=== PATIENT | male | born 1955 | race Caucasian/White ===

== ENCOUNTER 2017-11-13 21:47 | Observation (INO) | payer MEDICAID, SELFPAY ==
[2017-11-13 21:51] VITALS: BP 150/63; PULSE 93; RESP 18; TEMP 36.4; O2SAT 93; BMI 39.7
--- NOTE | 2017-11-13 21:57 | HMH.EDGENADL ---
ED Disposition Clinical Impression: New onset atrial fibrillation Congestive heart failure Qualifiers: Heart failure type: unspecified Heart failure chronicity: acute Qualified Code(s): I50.9 - Heart failure, unspecified Disposition: Still a Patient Condition on Discharge: Good - Critical Care Critical Care Time: Yes Attestation: On , the high probability of a clinically significant, sudden or life threatening deterioration of the following system(s) required my full and direct attention, intervention and personal management. The time I documented below is in addition to time spent performing reported procedures but includes the following listed in this critical care notation. Total Critical Care Time: 50 Vital system(s) involved:: Circulatory Failure My critical care processes included: Assessment & monitoring of V/S, Initial and Re-exams, Data Review/Interpretation, Coordinating Care, Medication Orders and management, Documentation Medical Decision Making - [place] Inquiry Pt receiving controlled substance: No Vital Signs: 11/13/17 21:51 11/14/17 00:46 Temperature 97.6 F Temperature Source Temporal Artery Scan Pulse Rate [Right Radial] 93 H 91 H Respiratory Rate 18 14 Blood Pressure [Right Arm] 150/63 129/56 Blood Pressure Mean [Right Arm] 92 80 Blood Pressure Source [Right Arm] Automatic Cuff Blood Pressure Position [Right Arm] Sitting 02 Sat by Pulse Oximetry 93 L 97 Oxygen Delivery Method Room Air Room Air - Lab Data Lab Results 11/13/17 22:20: WBC 9.2, RBC 4.08 L, Hgb 12.4 L, Hct 40.1 L, MCV 98.3 H, MCH 30.4, MCHC 31.0 L, RDW 15.1, Plt Count 213, MPV 7.8, Neut % (Auto) 79.6, Lymph % (Auto) 11.6, [place] % (Auto) 6.5, Eos % (Auto) 2.0, Baso % (Auto) 0.3, Neut # (Auto) 7.3, Lymph # (Auto) 1.1, [place] # (Auto) 0.6, Eos # (Auto) 0.2, Baso # (Auto) 0.0 11/13/17 22:20: Sodium 142, Potassium 4.1, Chloride 104, Carbon Dioxide 28, Anion Gap 14.1, BUN 17, Creatinine 0.97, Estimated Creat Clear 138, Estimated GFR 78, Est GFR ( Amer) 95, Glucose 153 H, Calcium 8.6, Total Bilirubin 0.4, AST 13 L, ALT 21, Alkaline Phosphatase 70, Total Creatine Kinase 140, CK-MB (CK-2) 2.2, CK-MB (CK-2) Rel Index 1.6, Troponin I < 0.02, Total Protein 7.2, Albumin 3.7, Globulin 3.5 H, Albumin/Globulin Ratio 1.1 11/13/17 22:20: Lactic Acid 3.0 H 11/13/17 22:20: B-Natriuretic Peptide 77 Result diagrams: 11/13/17 22:20 11/13/17 22:20 Orders (Tests/Meds): ED MEDICATIONS Generic Name Dose Route Start Last Admin Trade Name Freq PRN Reason Stop Dose Admin Iopamidol 70 ml 11/14/17 00:36 11/14/17 01:12 [id number]; 75ml Vial IV 11/14/17 00:37 70 ml ONCE ONE Administration Sodium Chloride 10 ml 11/14/17 00:36 11/14/17 01:13 Rad-Saline Flush 10ml Syringe IV 11/14/17 00:37 10 ml ONCE ONE Administration Sodium Chloride 40 ml 11/14/17 00:36 11/14/17 01:13 Rad-Ns 50ml Vial IV 11/14/17 00:37 40 ml ONCE ONE Administration Discontinued Medications Generic Name Dose Route Start Last Admin Trade Name Meme PRN Reason Stop Dose Admin Furosemide 40 mg 11/14/17 01:02 Lasix 40mg/4ml Vial IV 11/14/17 01:03 ONCE ONE Metoprolol Tartrate 50 mg 11/13/17 23:37 11/13/17 23:54 Lopressor 50mg Tablet PO 11/13/17 23:38 50 mg ONCE ONE Administration Rivaroxaban 20 mg 11/14/17 23:39 Xarelto 10mg Tablet PO 11/14/17 23:40 ONCE ONE Rivaroxaban 20 mg 11/13/17 23:39 11/13/17 23:54 Xarelto 10mg Tablet PO 11/13/17 23:40 20 mg ONCE ONE Administration ORDERS Category Date Time Status CT Req chest with PE protocol Stat Cat Scan 11/13/17 23:[address] angio chest Stat Cat Scan 11/13/17 23:[address] angio chest Stat Cat Scan 11/14/17 00:17 Ordered Chest XR 2 view (NOT portable) [XR chest 2V] Stat Exams 11/13/17 22:04 Taken - Radiology Data #1 Image(s): Chest Image Reviewed: Yes I reviewed the patient's radiology image Rina
--- NOTE | 2017-11-13 22:04 | XR_ITS ---
XR chest 2V COMPARISON: Portable upright chest 02/20/2015 HISTORY: Shortness of breath and cough TECHNIQUE: PA and lateral chest FINDINGS: The lung berger are fairly well-expanded. There is diffuse vascular congestion with prominence of the upper lobe vessels and there is thickening the minor fissure. There is borderline cardio megaly. The cardiac pacemaker overlying the right upper chest with dual chamber electrodes both in good position. IMPRESSION: Findings consistent with acute congestive heart failure
[2017-11-13 22:34] LABS: Basophils % 0.3 % (0.1-2.0); Eosinophils # 0.2 K/mm3 (0.0-0.4); Hematocrit 40.1 % (42.0-52.0); Hemoglobin 12.4 g/dL (14.1-18.0); Lymphocytes # 1.1 K/mm3 (0.7-4.5); Lymphocytes % 11.6 K/mm3 (10-50); Mean Corpuscular Hemoglobin 30.4 pg (27.0-31.2); Mean Corpuscular Volume 98.3 fl (80-94); Mean Platelet Volume 7.8 fl (7.4-10.4); Monocytes # 0.6 K/mm3 (0.1-1.0); Monocytes % 6.5 % (1.7-9.3); Neutrophils # 7.3 K/mm3 (1.8-7.8); Neutrophils % 79.6 % (37.0-80.0); Platelet Count 213 K/mm3 (142-424); Red Blood Count 4.08 M/mm3 (4.60-6.20); Red Cell Distribution Width 15.1 % (11.5-17.5); White Blood Count 9.2 K/mm3 (4.8-10.8)
[2017-11-13 22:57] LABS: Alanine Aminotransferase 21 U/L (12-78); Albumin Level 3.7 gm/dL (3.4-5.0); Albumin/Globulin Ratio 1.1 (1.1-1.8); Alkaline Phosphatase 70 U/L (46-116); Anion Gap 14.1 mEq/L (5-15); Aspartate Amino Transferase 13 U/L (15-37); Bilirubin,Total 0.4 mg/dL (0.2-1.0); Blood Urea Nitrogen 17 mg/dL (7-18); CKMB Relative Index 1.6 U/L (0-4.0); Calcium 8.6 mg/dL (8.5-10.1); Carbon Dioxide 28 mmol/L (21.0-32.0); Chloride 104 mmol/L (98-107); Creatine Kinase 140 U/L (39-308); Creatine Kinase MB 2.2 mg/ml (0.0-3.6); Creatinine Clearance Estimated 138 mL/min (0-300); Creatinine,Serum 0.97 mg/dL (0.70-1.30); Estimated Glomerular Filt Rate 78 ml/min (>60); GFR (African American) 95 ML/MIN (>60); Globulin 3.5 gm/dl (1.3-3.2); Glucose 153 mg/dL (74-106); Potassium 4.1 mmoL/L (3.5-5.1); Sodium 142 mmol/L (136-145); Total Protein,Serum 7.2 gm/dL (6.4-8.2); Troponin I < 0.02 ng/ml (0.00-0.06)
--- NOTE | 2017-11-13 23:32 | PC.NURSE ---
DR Jones on phone with DR. Parish.
--- NOTE | 2017-11-13 23:59 | CT_ITS ---
CT angio chest COMPARISON: PA and lateral chest 11/13/2017 HISTORY: Shortness of breath, new onset of atrial fibrillation, previous smoking history TECHNIQUE: Multiaxial scans obtained from the thoracic inlet to the hemidiaphragms after rapid injection of IV contrast. Sagittal and coronal reformats were evaluated as well. FINDINGS: The lung berger are fairly well-expanded. There is excellent vascular opacification and there is no CT evidence of pulmonary emboli. There is moderate generalized cardio megaly and there is a cardiac pacemaker with dual chamber electrodes both in good position. Is coronary artery calcification. There is mild vascular congestion with mild atelectasis in the lower lobes bilaterally. Minimal scattered areas of groundglass opacity are noted. There is mild thickening of the minor fissure. There are mild centrilobular emphysematous changes in the upper lobes bilaterally. There is abundant fat within the superior mediastinum there is no abnormal adenopathy. IMPRESSION: Moderate generalized cardio megaly with findings suggesting mild congestive failure, there is no CT evidence of pulmonary emboli, basically agree with the [facility] report
[2017-11-14] VITALS (11 sets, daily range): BP systolic 114–137; BP diastolic 56–82; PULSE 76–100; RESP 14–18; TEMP 36.4–37; O2SAT 88–97; BMI 39.9
--- NOTE | 2017-11-14 00:06 | PC.NURSE ---
PT TO CT AT THIS TIME
--- NOTE | 2017-11-14 01:25 | PC.NURSE ---
CALLED ER TO VERIFY WITH MONIKA FIGUEROA AND HE ASKED THE MD IN THE ER AND STATED THAT THEY DID NOT WANT THE BLOOD CULTURES.
[2017-11-14 02:38] LABS: Reflex Lactic Add Lactic Reflex
--- NOTE | 2017-11-14 03:01 | PC.NURSE ---
PT IS A&OX3. HE DENIES CHEST PAIN AND SOA. STATES THAT HE IS UNABLE TO SLEEP ON HIS BACK AND PREFERS TO SLEEP ON HIS SIDE. YELLOWISH DRAINAGE NOTED FROM BOTH EYES. DENIES OTHER FORMS OF PAIN.
[2017-11-14 03:23] LABS: Lactic Acid Follow Up (RFLX 1) 2.6 (0.4-2.0)
[2017-11-14 04:54] LABS: Reflex Lactic (2 hrs) Add Lactic Reflex
[2017-11-14 06:21] LABS: POC Glucose,Bedside 82 mg/dL (70-110)
--- NOTE | 2017-11-14 09:55 | HMH.ACPN2 ---
Internal Medicine - PN: Subj *Date: 11/14/17 *Time: 09:55 Interval history: This 62-year-old white male has a history of hemic cardiomyopathy with an ejection fraction of 25-30%. Then in the emergency room last night with with symptoms of shortness of breath discomfort up into the neck. Seen by Dr. Lopez in the emergency room who described new onset of atrial fibrillation. After communication with Dr. Parish the patient was admitted. Cardiac enzymes are negative. The patient had a stent placed in 2008. He is pacer defibrillator was placed in 02/12. There was a lead displacement 02/20/2015 with readjustment of that. He is s seen by cardiology on a every 6 month basis. He has a history of diabetes in the family. His brother is diabetic. He had a brother that of cancer. His mother of cancer. Exam Vital signs and Labs for Last 24 Hours: Temp Pulse Resp BP Pulse Ox 98.4 F 90 18 137/73 90 L 11/14/17 08:00 11/14/17 08:00 11/14/17 08:00 11/14/17 08:00 11/14/17 08:00 Laboratory Results - last 24 hr 11/14/17 02:45: Lactic Acid Fup @ 4Hr 2.6 H 11/14/17 05:00: Lactic Acid Fup @ 2Hr 2.0 11/14/17 05:58: POC Glucose 82 I & O for Last 24 hours: Intake & Output 11/11/17 11/12/17 11/13/17 11/14/17 11:59 11:59 11:59 11:59 Intake Total 20 / 20 Output Total 1250 / 1250 Balance -1230 / -1230 - Constitutional no acute distress - *Routine HEENT Exam Eye: Present: PERRL ENT: Present: mucous membranes dry - *Routine Respiratory Exam Present: decreased breath sounds - *Routine Cardiovascular Exam Comments: His heart sounds are distant but he seems regular at this time. - *Routine Abdominal Exam Present: soft. Absent: tenderness Comments: Very obese - *Routine Extremities Exam Present: edema (Trace edema) - *Routine Neurological Exam Present: alert, oriented X3 - Routine Psychiatric Exam Comments: He directs his gaze away when speaking. Assessment and Plan (1) Ischemic cardiomyopathy Current visit: Yes Status: Acute Category: Medical Code(s): I25.5 - Ischemic cardiomyopathy (2) Presence of combination internal cardiac defibrillator (ICD) and pacemaker Current visit: Yes Status: Acute Category: Medical Code(s): Z95.810 - Presence of automatic (implantable) cardiac defibrillator (3) Cardiac dysrhythmia Current visit: Yes Status: Acute Category: Medical Code(s): I49.9 - Cardiac arrhythmia, unspecified (4) Diabetes mellitus type 2 in obese Current visit: Yes Status: Acute Category: Medical Code(s): E11.69 - Type 2 diabetes mellitus with other specified complication; E66.9 - Obesity, unspecified - Assessment and plan all Dx Assessment and Plan for all problems:: See orders. There is a consult for cardiology.
--- NOTE | 2017-11-14 10:08 | HMH.PHAVTE ---
[facility] Pharmacy VTE Monitoring - Patient Demographics Admission date: 11/14/17 (T) Report Date: 11/14/17 Time: 10:08 Allergies/Adverse Reactions: Patient Allergies From PEPCID Allergy (Unknown, Uncoded 08/17/17 15:24) MARCELINA Height: 1.8 m Weight: 129.727 kg Patient Problems: Current Active Problems New onset atrial fibrillation (Acute) Congestive heart failure (Acute) Ischemic cardiomyopathy (Acute) Presence of combination internal cardiac defibrillator (ICD) and pacemaker (Acute) Cardiac dysrhythmia (Acute) Diabetes mellitus type 2 in obese (Acute) - VTE Risk Labs: VTE Related Lab Results Hgb 12.4 g/dL (14.1-18.0) L 11/13/17 22:20 Hct 40.1 % (42.0-52.0) L 11/13/17 22:20 Plt Count 213 K/mm3 (142-424) 11/13/17 22:20 BUN 17 mg/dL (7-18) 11/13/17 22:20 Creatinine 0.97 mg/dL (0.70-1.30) 11/13/17 22:20 Estimated Creat Clear 138 mL/min (0-300) 11/13/17 22:20 VTE Score: 3 VTE Risk Level: Low Risk - Prophylaxis Types of VTE Prophylaxis: TEDS Knee High - VTE Diagnosis Confirmed Comment: MARCELLO LEDBETTER ORDERED
--- NOTE | 2017-11-14 11:07 | PC.NURSE ---
MADE DR. ATKINSON AWARE AT THIS TIME ABOUT CONSULT. STATED IT WAS OKAY TO ALLOW PATIENT TO EAT AT THIS TIME.
[2017-11-14 11:43] LABS: POC Glucose,Bedside 206 mg/dL (70-110)
--- NOTE | 2017-11-14 17:03 | HMH.HP ---
*Admission Date: 11/14/17 (T) *Chief complaint: SOA *History of present illness: This 62-year-old white male was admitted during the night of . He was seen in the emergency room at [facility]. He was complaining of shortness of air through the day with some discomfort up into the neck. He has a history of coronary artery disease. In 2008 he received a stent. He has been followed by Dr. Parish who sees him every 6 months. He received a pacemaker/AICD in February 12, 2015 with correction of a lead displacement February 20, 2015. He has diabetes and has had congestive heart failure in the past. He is not a very good historian. [facility] History Medical History: Reports:: Atrial Fibrillation, Cardiomyopathy (25-30% EF), Diabetes Mellitus Type 2, Hyperlipidemia, Myocardial Infarction Denies:: Cancer, Diabetes Mellitus Type 1, MRSA Other Surgeries: Yes: Angiogram, Angioplasty, Pacemaker Amputation: No Fractures: No - *Social History Smoking Status: Heavy tobacco smoker Tobacco Type: smokeless tobacco Alcohol Intake: never Occupational Status: retired Household Members: spouse - Psychiatric History Expresses thoughts of harming self/others: None Suicide Plan Description: No Plan *Family Hx:: Cancer, Diabetes Comment: His mother of cancer of some sort. A brother of cancer. Another brother has diabetes. Review of Systems - Constitutional Denies chills, Denies weakness - *Cardiovascular Reports shortness of breath, Reports radiating jaw, neck or arm pain, Denies chest pain, Denies fainting - *Respiratory Reports shortness of breath - *Gastrointestinal Denies abdominal pain, Denies constipation, Denies loose stools - *Genitourinary Denies difficulty urinating - *Musculoskeletal Denies joint swelling - *Neurologic Denies localized weakness - Endocrine Denies cold intolerance - Hematologic/Lymphatic Denies easy bleeding, Denies easy bruising Meds Home Medications Medication Instructions Recorded Confirmed Type Atorvastatin Calcium [Atorvastatin 80 mg PO HS 11/13/17 11/14/17 History 80mg Tab] Carvedilol [Carvedilol 25mg Tab] 25 mg PO BID 11/13/17 11/14/17 History Finasteride [Proscar 5mg Tablet] 5 mg PO DAILY 11/13/17 11/14/17 History Gabapentin [Neurontin 600mg 600 mg PO TID 11/13/17 11/14/17 History tablet] Isosorbide Mononitrate [Imdur 30mg 15 mg PO DAILY 11/13/17 11/14/17 History ER tablet] Levothyroxine Sodium 75 mcg PO DAILY 11/13/17 11/14/17 History [Levothyroxine 75mcg (0.075mg) Tab] Lisinopril [Lisinopril 2.5mg Tab] 2.5 mg PO DAILY 11/13/17 11/14/17 History Metformin HCl [Metformin 850mg 850 mg PO TID 11/13/17 11/14/17 History Tablet] Omeprazole [Omeprazole 40mg 40 mg PO DAILY 11/13/17 11/14/17 History Capsule] glipiZIDE [Glipizide ER] 5 mg PO DAILY 11/13/17 11/14/17 History Humulin 70/30 45 units SQ BID 11/14/17 11/14/17 History Vitamin D 400 units PO BID 11/14/17 11/14/17 History Allergies Allergy/AdvReac Type Severity Reaction Status Date / Time From [facility] Allergy Unknown I-HIVES Uncoded 08/17/17 15:24 Exam Vital signs and Labs for Last 24 Hours: Temp Pulse Resp BP Pulse Ox 97.9 F 76 18 114/71 93 L 11/14/17 16:00 11/14/17 16:00 11/14/17 16:00 11/14/17 16:00 11/14/17 16:00 Laboratory Results - last 24 hr 11/14/17 02:45: Lactic Acid Fup @ 4Hr 2.6 H 11/14/17 05:00: Lactic Acid Fup @ 2Hr 2.0 11/14/17 05:58: POC Glucose 82 11/14/17 11:28: POC Glucose 206 I & O for Last 24 hours: Intake & Output 11/12/17 11/13/17 11/14/17 11/15/17 11:59 11:59 11:59 11:59 Intake Total 360 / 360 Output Total 1250 / 1250 Balance -1230 / -1230 360 / 360 Weight 286 lb - Constitutional no acute distress Comments: He diverts his eyes during the interview. - *Routine HEENT Exam Head: Present: normocephalic Eye: Present: PERRL (I had to ask him to look into my eyes during the exam) ENT: Pr
--- NOTE | 2017-11-14 17:06 | P.HP_ITS ---
*Admission Date: 11/14/17 (T) *Chief complaint: SOA *History of present illness: This 62-year-old white male was admitted during the night of . He was seen in the emergency room at [facility]. He was complaining of shortness of air through the day with some discomfort up into the neck. He has a history of coronary artery disease. In 2008 he received a stent. He has been followed by Dr. Parish who sees him every 6 months. He received a pacemaker/AICD in February 12, 2015 with correction of a lead displacement January. He has diabetes and has had congestive heart failure in the past. He is not a very good historian. [facility] History Medical History: Reports:: Atrial Fibrillation, Cardiomyopathy (25-30% EF), Diabetes Mellitus Type 2, Hyperlipidemia, Myocardial Infarction Denies:: Cancer, Diabetes Mellitus Type 1, MRSA Other Surgeries: Yes: Angiogram, Angioplasty, Pacemaker Amputation: No Fractures: No - *Social History Smoking Status: Heavy tobacco smoker Tobacco Type: smokeless tobacco Alcohol Intake: never Occupational Status: retired Household Members: spouse - Psychiatric History Expresses thoughts of harming self/others: None Suicide Plan Description: No Plan *Family Hx:: Cancer, Diabetes Comment: His mother of cancer of some sort. A brother of cancer. Another brother has diabetes. Review of Systems - Constitutional Denies chills, Denies weakness - *Cardiovascular Reports shortness of breath, Reports radiating jaw, neck or arm pain, Denies chest pain, Denies fainting - *Respiratory Reports shortness of breath - *Gastrointestinal Denies abdominal pain, Denies constipation, Denies loose stools - *Genitourinary Denies difficulty urinating - *Musculoskeletal Denies joint swelling - *Neurologic Denies localized weakness - Endocrine Denies cold intolerance - Hematologic/Lymphatic Denies easy bleeding, Denies easy bruising Meds Home Medications Medication Instructions Recorded Confirmed Type Atorvastatin Calcium [Atorvastatin 80 mg PO HS 11/13/17 11/14/17 History 80mg Tab] Carvedilol [Carvedilol 25mg Tab] 25 mg PO BID 11/13/17 11/14/17 History Finasteride [Proscar 5mg Tablet] 5 mg PO DAILY 11/13/17 11/14/17 History Gabapentin [Neurontin 600mg 600 mg PO TID 11/13/17 11/14/17 History tablet] Isosorbide Mononitrate [Imdur 30mg 15 mg PO DAILY 11/13/17 11/14/17 History ER tablet] Levothyroxine Sodium 75 mcg PO DAILY 11/13/17 11/14/17 History [Levothyroxine 75mcg (0.075mg) Tab] Lisinopril [Lisinopril 2.5mg Tab] 2.5 mg PO DAILY 11/13/17 11/14/17 History Metformin HCl [Metformin 850mg 850 mg PO TID 11/13/17 11/14/17 History Tablet] Omeprazole [Omeprazole 40mg 40 mg PO DAILY 11/13/17 11/14/17 History Capsule] glipiZIDE [Glipizide ER] 5 mg PO DAILY 11/13/17 11/14/17 History Humulin 70/30 45 units SQ BID 11/14/17 11/14/17 History Vitamin D 400 units PO BID 11/14/17 11/14/17 History Allergies Allergy/AdvReac Type Severity Reaction Status Date / Time From [facility] Allergy Unknown I-HIVES Uncoded 08/17/17 15:24 Exam Vital signs and Labs for Last 24 Hours: Temp Pulse Resp BP Pulse Ox 97.9 F 76 18 114/71 93 L 11/14/17 16:00 11/14/17 16:00 11/14/17 16:00 11/14/17 16:00 11/14/17 16:00 Laboratory Results - last 24 hr 03
--- NOTE | 2017-11-14 18:06 | PC.NURSE ---
DR ATKINSON ROUNDED ON [place] AT ABOUT 1435 FOR ORDERED CONSULT. AFTER ASSESSING PATIENT HE ENUSRED AN ORDER WAS PLACED FOR AN ECHO. HE ALSO WANTED ALDACTONE 50MG PO DAILY AND LASIX 40MG PO DAILY ORDERED ON THE PATIENT AND TO START THOSE MEDS AT THAT TIME.
[2017-11-14 19:36] LABS: POC Glucose,Bedside 165 mg/dL (70-110)
[2017-11-14 20:41] LABS: POC Glucose,Bedside 149 mg/dL (70-110)
[2017-11-15] VITALS (8 sets, daily range): BP systolic 128–144; BP diastolic 64–92; PULSE 70–100; RESP 16–20; TEMP 36.5–37.2; O2SAT 87–95; BMI 40.0
--- NOTE | 2017-11-15 01:21 | CA_ITS ---
PROCEDURE: 2-D M-mode and color Doppler study INDICATIONS FOR THE TEST: Chest pain COPD Heart Murmur Tobacco Smoking+ Palpitations Fatigue Syncope Edema Hypertension+Diabetes Mellitus+ Rheumatic Fever SOB BA Obesity Hyperlipidemia Family History HD Additional History CAD, STENT, AICD, CM, ME PATIENT INFORMATION HEIGHT: 71 WEIGHT:285 GENDER: Male B/P:114/71 2-D/M-MODE INTERPRETATION: 2-D MEASUREMENTS OBSERVED VALUES IN CMS Right Ventricular Dimension (RVDd) 3.0 Interventricular Septum (Thickness)(IVsd) 1.0 Left Ventricular Internal Dimensions(LVIDd) 5.9 Left Ventricular Posterior Wall (Thickness)(LVPWd) 1.0 Aortic Root 3.1 Aortic Cusp Separation 1.5 Left Atrial Dimensions (LAD) 4.4 2D 1. Left atrium is moderately enlarged, left ventricle is mildly dilated, there is left ventricular systolic function, visually estimated ejection fraction approximately 40-45%, there is marked hypo to akinesis involving the inferior inferobasal and posterobasal wall. Endocardial surface of poorly visualized. 2. The right atrium and right ventricular mildly enlarged with normal contractility., There is a catheter noted in the right ventricle which is likely an ICD lead. 3. The aortic valve is minimally thickened and fibrosed. 4. The mitral and tricuspid valve leaflets are minimally thickened. 5. The pulmonic valve is poorly visualized. 6. No significant pericardial effusion noted. DOPPLER INTERROGATION: Doppler interrogation of the aortic, mitral and tricuspid valvular presence of moderate mitral and mild tricuspid regurgitation, tricuspid and jet velocity insufficient for calculation of the right ventricular systolic pressure. Grade 1 diastolic dysfunction seen with tissue Doppler evidence of raised left atrial pressure. CONCLUSION: 1. Biatrial enlargement, dilated left ventricle, reduced left ventricular systolic function, visually estimated ejection fraction 40-45% with multiple segmental wall motion abnormality described above, grade 1 diastolic dysfunction seen with tissue Doppler evidence of raised left atrial pressure. 2. Moderate mitral and mild tricuspid regurgitation 3. No significant pericardial effusion noted.
--- NOTE | 2017-11-15 03:17 | PC.NURSE ---
PT IS A&OX3. HE HAS BEEN AMBULATING INDEPENDENTLY WITH A STEADY GAIT TO BATHROOM AND BACK TO HIS ROOM. HIS LUNG SOUNDS ARE DIMINISHED. DENIES SOA AND PAIN.
[2017-11-15 06:10] LABS: POC Glucose,Bedside 153 mg/dL (70-110)
[2017-11-15 09:07] LABS: Anion Gap 10.8 mEq/L (5-15); Blood Urea Nitrogen 13 mg/dL (7-18); Carbon Dioxide 31 mmol/L (21.0-32.0); Chloride 101 mmol/L (98-107); Creatinine Clearance Estimated 139 mL/min (0-300); Creatinine,Serum 0.95 mg/dL (0.70-1.30); Estimated Glomerular Filt Rate 80 ml/min (>60); GFR (African American) 97 ML/MIN (>60); Glucose 189 mg/dL (74-106); Potassium 3.8 mmoL/L (3.5-5.1); Sodium 139 mmol/L (136-145)
--- NOTE | 2017-11-15 09:31 | HMH.ACPN2 ---
Internal Medicine - PN: Subj *Date: 11/15/17 *Time: 09:31 Interval history: He has remained stable. He is in and out of atrial fibrillation. See cardiology report. He may be discharged later today. Exam Vital signs and Labs for Last 24 Hours: Temp Pulse Resp BP Pulse Ox 98.1 F 92 H 20 139/65 94 L 11/15/17 07:54 11/15/17 07:54 11/15/17 07:54 11/15/17 07:54 11/15/17 07:54 Laboratory Results - last 24 hr 11/14/17 11:28: POC Glucose 206 11/14/17 16:30: POC Glucose 165 11/14/17 20:27: POC Glucose 149 11/15/17 05:50: POC Glucose 153 11/15/17 08:50: Sodium 139, Potassium 3.8, Chloride 101, Carbon Dioxide 31, Anion Gap 10.8, BUN 13, Creatinine 0.95, Estimated Creat Clear 139, Estimated GFR 80, Est GFR ( Amer) 97, Glucose 189 H I & O for Last 24 hours: Intake & Output 11/12/17 11/13/17 11/14/17 11/15/17 11:59 11:59 11:59 11:59 Intake Total 1100 / 1100 Output Total 1250 / 1250 1500 / 1500 Balance -1230 / -1230 -400 / -400 Weight 286 lb 286 lb 8.353 oz - *Routine Cardiovascular Exam Present: RRR Comments: Seems sinus at this time. - *Routine Abdominal Exam Comments: Obese soft - *Routine Extremities Exam Absent: edema Assessment and Plan (1) Ischemic cardiomyopathy Current visit: Yes Status: Acute Category: Medical Code(s): I25.5 - Ischemic cardiomyopathy (2) Presence of combination internal cardiac defibrillator (ICD) and pacemaker Current visit: Yes Status: Acute Category: Medical Code(s): Z95.810 - Presence of automatic (implantable) cardiac defibrillator (3) Cardiac dysrhythmia Current visit: Yes Status: Acute Category: Medical Code(s): I49.9 - Cardiac arrhythmia, unspecified (4) Diabetes mellitus type 2 in obese Current visit: Yes Status: Acute Category: Medical Code(s): E11.69 - Type 2 diabetes mellitus with other specified complication; E66.9 - Obesity, unspecified - Assessment and plan all Dx Assessment and Plan for all problems:: Perhaps discharge later.
--- NOTE | 2017-11-15 09:44 | HMH.CNCARD ---
History of Present Illness Consult date: 11/14/17 Requesting physician: Ajit Diego Consult reason: atrial fibrillation, congestive heart failure Chief complaint: SOA Additional Medical History:: 1. Coronary artery disease A. History of myocardial infarction in 2008 and subsequent coronary stenting B. Ischemic cardiomyopathy by exercise Myoview, 01/2015, showing old inferior AL with rashid-infarction ischemia and ejection fraction of 36%. Patient asymptomatic. C. Echocardiogram, 01/2015, EF 25-35%. D. History of congestive heart failure E. [place] aldo [place] [id number] ICD placement, 01/2015, with lead repositioning also in 01/2015. 2. Diabetes mellitus 3. Hypertension 4. Hyperlipidemia 5. History of tobacco use, discontinued 2008, smoked 3-4 packs per day for many years starting as a teenager. 6. Obesity History of present illness: 62-year-old white male with known ischemic cardiomyopathy, AICD in situ and previous coronary artery stenting after myocardial infarction in 2008 presented to hospital for increasing shortness of breath over the last several days. Patient was found to have atrial fibrillation with a mild rapid ventricular response (102 bpm) and was started on PO metoprolol for rate control. Chest x-ray revealed evidence of congestive heart failure and patient was started on diuretic therapy as well. Cardiology consulted for further evaluation recommendations. Patient has been followed in our clinic for his ICD but has not been seen for ongoing clinical evaluations for unknown reason. He denies any chest pain, pressure or tightness. He has noticed some increased swelling in his abdomen and legs and does admit to drinking 10-12 soft drinks per day. He was seen by Dr. Parish yesterday with plans for an echocardiogram today. Review of his ICD interrogations in the office show A. Fib burden of <1% as recently as 05/2017. [facility] History Medical History: Reports:: Atrial Fibrillation, Cardiomyopathy (25-30% EF), Coronary Artery Disease, Diabetes Mellitus Type 2, Hyperlipidemia, Internal Pacemaker, Myocardial Infarction Denies:: Cancer, Diabetes Mellitus Type 1, MRSA Other Surgeries: Yes: Angiogram, Angioplasty, Pacemaker Amputation: No Fractures: No - *Social History Smoking Status: Heavy tobacco smoker Tobacco Type: smokeless tobacco Alcohol Intake: never Occupational Status: retired Household Members: spouse - Psychiatric History Expresses thoughts of harming self/others: None Suicide Plan Description: No Plan *Family Hx:: Cancer, Diabetes Meds Home Medications Medication Instructions Recorded Confirmed Type Atorvastatin Calcium [Atorvastatin 80 mg PO HS 11/13/17 11/14/17 History 80mg Tab] Carvedilol [Carvedilol 25mg Tab] 25 mg PO BID 11/13/17 11/14/17 History Finasteride [Proscar 5mg Tablet] 5 mg PO DAILY 11/13/17 11/14/17 History Gabapentin [Neurontin 600mg 600 mg PO TID 11/13/17 11/14/17 History tablet] Isosorbide Mononitrate [Imdur 30mg 15 mg PO DAILY 11/13/17 11/14/17 History ER tablet] Levothyroxine Sodium 75 mcg PO DAILY 11/13/17 11/14/17 History [Levothyroxine 75mcg (0.075mg) Tab] Lisinopril [Lisinopril 2.5mg Tab] 2.5 mg PO DAILY 11/13/17 11/14/17 History Metformin HCl [Metformin 850mg 850 mg PO TID 11/13/17 11/14/17 History Tablet] Omeprazole [Omeprazole 40mg 40 mg PO DAILY 11/13/17 11/14/17 History Capsule] glipiZIDE [Glipizide ER] 5 mg PO DAILY 11/13/17 11/14/17 History Humulin 70/30 45 units SQ BID 11/14/17 11/14/17 History Vitamin D 400 units PO BID 11/14/17 11/14/17 History Allergies Allergy/AdvReac Type Severity Reaction Status Date / Time From PEPCID Allergy Unknown I-HIVES Uncoded 08/17/17 15:24 Review of Systems - *Cardiovascular Reports shortness of breath, Reports shortness of breath with activity, Reports leg swelling - *Respiratory Reports shortness of breath with activity - *Gastrointestinal Denies abdominal pain
--- NOTE | 2017-11-15 14:23 | PC.NURSE ---
FAMILY AT BEDSIDE ASKING ABOUT POSSIBLE DISCHARGE. NOTE IN SYSTEM FROM CARDIOLOGY STATING PT OK TO DC HOME WITH MEDICATION CHANGES AND FOLLOW UP. FAMILY INFORMED DR SCOTT IS PRIMARY PHYSICIAN AND WOULD BE THE ONE TO DC THE PT. CALL PLACED TO DR SCOTT OFFICE TO INFORM THEM OF FAMILY ASKING ABOUT DISCHARGE AND CARDIOLOG'S RECOMMENDATIONS. AWAITING CALL BACK FROM OFFICE. FAMILY REMAINS AT BS. CALL LIGHT WITHIN REACH.
[2017-11-15 18:07] LABS: POC Glucose,Bedside 188 mg/dL (70-110)
--- NOTE | 2017-11-15 22:55 | HMH.DCSUM ---
General - General Admission date: 11/14/17 (T) Discharge date: 11/15/17 HPI HPI: This 62-year-old white male was admitted during the night of 11/13. He was seen in the emergency room at [facility]. He was complaining of shortness of air through the day with some discomfort up into the neck. He has a history of coronary artery disease. In 2008 he received a stent. He has been followed by Dr. Parish who sees him every 6 months. He received a pacemaker/AICD in February 12, 2015 with correction of a lead displacement on February 20, 2015. He has diabetes and has had congestive heart failure in the past. He is not a very good historian. Hospital Course Hospital Course: Cardiology saw the patient and his ICD was interrogated. It showed increased Atrial fib/flutter noted since the end of July 2017 (80 days of a. fib/flutter total since 08/25/2017). There was also a rare non-sustained episode of V. tach (total of 5 with the longest of 10 beats). Cardiology recommended to continue coreg, lisinopril and Xarelto. They felt the patient was okay for discharge from cardiology standpoint with follow up in their office in a week. Objective Vital signs: Temp Pulse Resp BP Pulse Ox 98.9 F 90 18 144/92 94 L 11/15/17 16:00 11/15/17 17:57 11/15/17 16:00 11/15/17 16:00 11/15/17 16:00 Narrative: - Constitutional no acute distress Comments: He diverts his eyes during the interview. - *Routine HEENT Exam Head: Present: normocephalic Eye: Present: PERRL (I had to ask him to look into my eyes during the exam) ENT: Present: mucous membranes dry - *Routine Neck Exam Present: supple - *Routine Respiratory Exam Present: decreased breath sounds - *Routine Cardiovascular Exam Comments: His rhythm seemed regular at the time of this exam. He monitors primarily atrial fibrillation but there can be some periods of normal sinus rhythm as well. - *Routine Abdominal Exam Present: soft. Absent: tenderness Comments: Obese Results Labs on day of discharge: Labs from last 24 hours 11/15/17 11/15/17 11/15/17 17:59 08:50 05:50 Sodium 139 Potassium 3.8 Chloride 101 Carbon Dioxide 31 Anion Gap 10.8 BUN 13 Creatinine 0.95 Estimated Creat Clear 139 Estimated GFR 80 Est GFR ( Amer) 97 Glucose 189 H POC Glucose 188 153 DS: Diagnosis - Discharge Diagnosis (1) Cardiac dysrhythmia Status: Acute (2) Congestive heart failure Status: Acute (3) Diabetes mellitus type 2 in obese Status: Acute (4) Ischemic cardiomyopathy Status: Acute (5) New onset atrial fibrillation Status: Acute (6) Paroxysmal atrial fibrillation with rapid ventricular response Status: Acute (7) Presence of combination internal cardiac defibrillator (ICD) and pacemaker Status: Acute Discharge Plan - Patient Discharge Instructions ACTIVITY: Continue current activity DIET: diabetic diet, low fat, low cholesterol Patient Instructions: Low Glycemic Index Diets (Alternative Therapy), Atrial Fibrillation, Carbohydrate-Counting Diet, DI for Heart Failure - Follow up Plan Follow up with: Sterling Parish MD [Staff Physician] - Disposition: Home, Self-Long-Term Medications: Home Medications Medication Instructions Recorded Confirmed Type Atorvastatin Calcium [Atorvastatin 80 mg PO HS 11/13/17 11/14/17 History 80mg Tab] Carvedilol [Carvedilol 25mg Tab] 25 mg PO BID 11/13/17 11/14/17 History Finasteride [Proscar 5mg Tablet] 5 mg PO DAILY 11/13/17 11/14/17 History Gabapentin [Neurontin 600mg 600 mg PO TID 11/13/17 11/14/17 History tablet] Isosorbide Mononitrate [Imdur 30mg 15 mg PO DAILY 11/13/17 11/14/17 History ER tablet] Levothyroxine Sodium 75 mcg PO DAILY 11/13/17 11/14/17 History [Levothyroxine 75mcg (0.075mg) Tab] Lisinopril [Lisinopril 2.5mg Tab] 2.5 mg PO DAILY 11/13/17 11/14/17 History Metformin
--- NOTE | 2017-11-15 23:00 | P.DS_ITS ---
General - General Admission date: 11/14/17 (T) Discharge date: 11/15/17 HPI HPI: This 62-year-old white male was admitted during the night of 11/13. He was seen in the emergency room at [facility]. He was complaining of shortness of air through the day with some discomfort up into the neck. He has a history of coronary artery disease. In 2008 he received a stent. He has been followed by Dr. Parish who sees him every 6 months. He received a pacemaker/AICD in February 12, 2015 with correction of a lead displacement on February 20, 2015. He has diabetes and has had congestive heart failure in the past. He is not a very good historian. Hospital Course Hospital Course: Cardiology saw the patient and his ICD was interrogated. It showed increased Atrial fib/flutter noted since the end of July 2017 (80 days of a. fib/ flutter total since 08/25/2017). There was also a rare non-sustained episode of V. tach (total of 5 with the longest of 10 beats). Cardiology recommended to continue coreg, lisinopril and Xarelto. They felt the patient was okay for discharge from cardiology standpoint with follow up in their office in a week. Objective Vital signs: Temp Pulse Resp BP Pulse Ox 98.9 F 90 18 144/92 94 L 11/15/17 16:00 11/15/17 17:57 11/15/17 16:00 11/15/17 16:00 11/15/17 16:00 Narrative: - Constitutional no acute distress Comments: He diverts his eyes during the interview. - *Routine HEENT Exam Head: Present: normocephalic Eye: Present: PERRL (I had to ask him to look into my eyes during the exam) ENT: Present: mucous membranes dry - *Routine Neck Exam Present: supple - *Routine Respiratory Exam Present: decreased breath sounds - *Routine Cardiovascular Exam Comments: His rhythm seemed regular at the time of this exam. He monitors primarily atrial fibrillation but there can be some periods of normal sinus rhythm as well. - *Routine Abdominal Exam Present: soft. Absent: tenderness Comments: Obese Results Labs on day of discharge: Labs from last 24 hours 11/15/17 11/15/17 11/15/17 17:59 08:50 05:50 Sodium 139 Potassium 3.8 Chloride 101 Carbon Dioxide 31 Anion Gap 10.8 BUN 13 Creatinine 0.95 Estimated Creat Clear 139 Estimated GFR 80 Est GFR ( Amer) 97 Glucose 189 H POC Glucose 188 153 DS: Diagnosis - Discharge Diagnosis (1) Cardiac dysrhythmia Status: Acute (2) Congestive heart failure Status: Acute (3) Diabetes mellitus type 2 in obese Status: Acute (4) Ischemic cardiomyopathy Status: Acute (5) New onset atrial fibrillation Status: Acute (6) Paroxysmal atrial fibrillation with rapid ventricular response Status: Acute (7) Presence of combination internal cardiac defibrillator (ICD) and pacemaker Status: Acute Discharge Plan - Patient Discharge Instructions ACTIVITY: Continue current activity DIET: diabetic diet, low fat, low cholesterol Patient Instructions: Low Glycemic Index Diets (Alternative Therapy), Atrial Fibrillation, Carbohydrate-Counting Diet, DI for Heart Failure - Follow up Plan Follow up with: Sterling Parish MD [Staff Physician] - Disposition: Home, Self-Long-Term Medications: Home Medications
[2017-11-16 07:49] LABS: POC Glucose,Bedside 169 mg/dL (70-110)
== END 2017-11-15 19:35 | disposition home or self-care (01) ==
LOC: ER 11-14 01:05 → ICU 11-14 01:28
PROVIDERS: Physician Assistant; Admitting Provider Family Medicine; Emergency Provider Emergency Medicine; Visit Provider Family Medicine
DX: I48.0 Paroxysmal atrial fibrillation (principal); I50.9 Heart failure, unspecified; Z95.810 Presence of automatic (implantable) cardiac defibrillator; I48.2 Chronic atrial fibrillation; E11.69 Type 2 diabetes mellitus with other specified complication; I25.5 Ischemic cardiomyopathy; I25.2 Old myocardial infarction; Z95.5 Presence of coronary angioplasty implant and graft
CPT/HCPCS: 36415; 71046; 71275; 80048; 80053; 82550; 82553; 82962; 83605; 83880; 84484; 85025; 93005; 93306; 96374; 99284; G0378; Q9967

== ENCOUNTER → 2018-01-06 11:47 | Outpatient (CLI) | payer MEDICAID, SELFPAY ==
--- NOTE | 2018-01-06 11:49 | NM_ITS ---
History and Indications: History of [place] hypertension, diabetes, hyperlipidemia, tobacco use and family history Procedure: Patient received a 0.4 mg of Lexiscan, resting heart rate was 69 bpm resting blood pressure 111/57, with Lexiscan maximum heart rate achieved was 96 bpm which is less than 85% of the maximum predicted heart rate and a blood pressure was 118/65. With Lexiscan patient complained of shortness of breath Electrocardiogram: Resting echocardiogram showed sinus rhythm, with Lexiscan there is less than 0.[address] segment depression from the baseline EKG. The EKG portion of the Lexiscan Myoview is nondiagnostic. Cardiac stress and resting SPECT images: Cardiac stress and rest SPECT images were obtained using technetium 99 Myoview 30.8 mCi at stress and 10.8 mCi at rest gated SPECT further analysis of segmental wall motion and calculation of the ejection fraction also done. Cardiac stress and resting SPECT images show a large area of fixed defect., Posterobasal, inferolateral wall in a fixed pattern consistent with area of prior myocardial scarring, in addition there is reversible ischemia involving the anteroseptal wall. Computer derived ejection fraction is 27% with marked hypokinesis involving the inferior and inferolateral and posterobasal wall. Right ventricle is normal size and contractility. Left ventricle is dilated both stress and rest. Conclusion: 1. The EKG portion of the Lexiscan Myoview is nondiagnostic. 2. Scintigraphic evidence of extensive prior myocardial scarring involving the inferior and posterobasal and inferolateral wall, in addition there is reversible ischemia involving the anteroseptal wall. Computer derived ejection fraction is 27% with segmental wall motion abnormality described above, right ventricle is normal size and contractility. Left ventricle is dilated both stress and rest. 3. Abnormal Lexiscan Myoview study.
== END ==
PROVIDERS: PCP Nurse Practitioner Family; Visit Provider Internal Medicine
DX: R06.00 Dyspnea, unspecified (principal); I48.0 Paroxysmal atrial fibrillation; I48.92 Unspecified atrial flutter; I25.5 Ischemic cardiomyopathy; I50.42 Chronic combined systolic (congestive) and diastolic (congestive) heart failure; R53.83 Other fatigue; E66.9 Obesity, unspecified
CPT/HCPCS: 78452; 93017; A9502; J2785

== ENCOUNTER 2020-09-09 17:53 | Observation (INO) | payer MEDICARE, SELFPAY ==
[2020-09-09] VITALS (7 sets, daily range): BP systolic 109–134; BP diastolic 66–80; PULSE 61–90; RESP 15–18; TEMP 36.6–37.1; O2SAT 96–98; BMI 31.2; BMI 29.9
--- NOTE | 2020-09-09 18:01 | ECG_ITS ---
APPROVED REPORT Exam: Resting ECG HR:73 bpm ECG Measurements Heart Rate 73 AXES [place] 174 P 58 QRSd 92 QRS -29 QT 404 T 46 QTc 445 Conclusion Normal sinus rhythm Old inferior changes - isolated q in iii Abnormal ECG Electronically signed by : Darius Alvarez, 09/10/2020 06:58:40
--- NOTE | 2020-09-09 18:11 | XR_ITS ---
PROCEDURE: XR CHEST PORTABLE CLINICAL HISTORY: soa COMPARISON: CR CXR2 CHEST-AP VIEW ONLY from 02/20/2015 CR CXR2V XR chest 2V from 11/13/[address] angio chest from 11/14/2017 CR CXR2V XR chest 2V from 12/30/2017 FINDINGS: Bipolar pacemaker is present from right subclavian approach. Normal heart size. The lungs are clear without infiltrates, suspicious nodules, or pleural effusions. No acute bony abnormalities. IMPRESSION: No acute findings. Dictated by: Raman Jones MD 09/10/2020 05:49 Raman Jones MD in [place] 09/10/2020 05:49
--- NOTE | 2020-09-09 18:12 | HMH.EDDIZZ ---
ED Disposition Clinical Impression: Syncope Disposition: Admitted As Inpatient Condition on Discharge: Good Referrals: PCP,No [Primary Care Provider] - - Critical Care Critical Care Time: No Attestation: On 09/09/20, the high probability of a clinically significant, sudden or life threatening deterioration of the following system(s) required my full and direct attention, intervention and personal management. The time I documented below is in addition to time spent performing reported procedures but includes the following listed in this critical care notation. Medical Decision Making - Medical Records Medical records reviewed: Yes: I reviewed the patient's medical records. - [place] Inquiry Pt receiving controlled substance: No Vital Signs: 09/09/20 17:55 Temperature 98.6 F Temperature Source Oral Pulse Rate [Right] 61 Respiratory Rate 16 Blood Pressure [Right Arm] 133/74 Blood Pressure Mean [Right Arm] 93 Blood Pressure Source [Right Arm] Automatic Cuff Blood Pressure Position [Right Arm] Sitting 02 Sat by Pulse Oximetry 98 Oxygen Delivery Method Room Air - Lab Data Lab Results 09/09/20 18:21: WBC 11.0 H, RBC 5.04, Hgb 16.1, Hct 50.0, MCV 99.1 H, MCH 31.9 H, MCHC 32.2, RDW 13.3, Plt Count 235, MPV 8.2, Neut % (Auto) 83.4 H, Lymph % (Auto) 9.3 L, [place] % (Auto) 6.2, Eos % (Auto) 0.7, Baso % (Auto) 0.3, Neut # (Auto) 9.2 H, Lymph # (Auto) 1.0, [place] # (Auto) 0.7, Eos # (Auto) 0.1, Baso # (Auto) 0.0 09/09/20 18:21: Sodium 134 L, Potassium 4.7, Chloride 100, Carbon Dioxide 25, Anion Gap 13.7, BUN 23 H, Creatinine 0.90, Estimated Creat Clear 104, Estimated GFR 84, Est GFR ( Amer) 102, Glucose 199 H, Calcium 9.8, Magnesium 2.0, Troponin I < 0.01 09/09/20 18:21: NT-Pro-B Natriuret Pep 323 H Result diagrams: 09/09/20 18:21 09/09/20 18:21 Orders (Tests/Meds): ORDERS Category Date Time Status CT head/brain wo con Stat Cat Scan 09/09/20 18:42 Taken XR chest portable Stat Exams 09/09/20 18:11 Taken Covid-19 IgG/IgM ([facility]) Stat Lab 09/09/20 19:23 Ordered Troponin I Q3H Lab 09/09/20 21:15 Ordered Troponin I Q3H Lab 09/10/20 00:15 Ordered Medical Decision Narrative: 65-year-old male presents with syncopal event. He arrived in no acute distress was conversant and had normal neurological exam. Concern for possible pacemaker defibrillator issue. He began having convulsion-like episodes however was awake and alert during episode. Magnet was placed on chest and he had fewer episodes at that point. His heart rate has been in the 60s. Atypical for cardiac events. EKG shows normal sinus rhythm with no preexcitation, QTc is normal and no other arrhythmic concerns. Plan to obtain labs and discuss case with his parking assistant Troponin was negative. Convulsive episodes have stopped, removed magnet from chest as unlikely to be related to defibrillator without shocks to the chest. Discussed case with Dr. Parish and he will evaluate in the morning. Plan to keep on telemetry tonight. CT head was negative as well and I do not think these episodes were seizures. Dr. Lima has been aware of the patient and plan to admit tonight and evaluate in the morning Dizzy HPI - General Chief Complaint: Dizziness Stated Complaint: [id number] Time Seen by Provider: 09/09/20 18:10 Source of Information: Patient, Spouse - History of Present Illness HPI Narrative: 65-year-old male with history of coronary disease, hypertension pacemaker presents with syncopal event. He says he was at home and standing and passed out. He denies hitting his head or having numbness weakness or tingling and lower extremities or upper extremities. He denies chest pain or abdominal pain or nausea or vomiting. He says that he recently had COVID-19 and has been cleared from quarantine. No fever chills or cough. complaint: dizziness Onset (ago): hour(s) (1) Timing: sudden onset Description: lightheadedness Severity: mild
[2020-09-09 18:32] LABS: Basophils % 0.3 % (0.1-2.0); Eosinophils # 0.1 K/mm3 (0.0-0.4); Eosinophils % 0.7 % (0.1-12.0); Hemoglobin 16.1 g/dL (14.1-18.0); Lymphocytes % 9.3 % (10-50); Mean Corpuscular HGB Conc 32.2 g/dL (31.8-35.4); Mean Corpuscular Hemoglobin 31.9 pg (27.0-31.2); Mean Corpuscular Volume 99.1 fl (80-94); Mean Platelet Volume 8.2 fl (7.4-10.4); Monocytes # 0.7 K/mm3 (0.1-1.0); Monocytes % 6.2 % (1.7-9.3); Neutrophils # 9.2 K/mm3 (1.8-7.8); Neutrophils % 83.4 % (37.0-80.0); Platelet Count 235 K/mm3 (142-424); Red Blood Count 5.04 M/mm3 (4.60-6.20); Red Cell Distribution Width 13.3 % (11.5-17.5)
[2020-09-09 18:36] LABS: Chloride 100 mmol/L (98-107); Sodium 134 mmol/L (136-145)
[2020-09-09 18:37] LABS: Potassium 4.7 mmoL/L (3.5-5.1)
[2020-09-09 18:39] LABS: Anion Gap 13.7 mEq/L (5-15); Blood Urea Nitrogen 23 mg/dl (9-20); Carbon Dioxide 25 mmol/L (22.0-30.0); Creatinine Clearance Estimated 104 mL/min (50-200); Estimated Glomerular Filt Rate 84 ml/min (>60); GFR (African American) 102 ML/MIN (>60)
[2020-09-09 18:40] LABS: Calcium 9.8 mg/dl (8.4-10.2); Glucose 199 mg/dl (74-100)
--- NOTE | 2020-09-09 18:42 | CT_ITS ---
PROCEDURE: CT HEAD/BRAIN WO CON CLINICAL INDICATION: dizziness Dizziness, seizures COMPARISON: No exams were available for comparison TECHNIQUE: Axial images obtained. All CT scans at the facility use one or more dose reduction, viz: automated exposure control, ma/kV adjustment per patient size (including targeted exams where dose is matched to indication, i.e. head), or iterative reconstruction technique. FINDINGS: No midline shift, mass effect, intracranial hemorrhage, hydrocephalus, or extra-axial fluid collection is evident. There is generalized atrophy with hypoattenuation of the periventricular white matter consistent with microangiopathic changes.. There is an area of decreased attenuation in the left basal ganglia measuring approximately 12 mm consistent with chronic lacunar infarction. The calvarium has an unremarkable appearance. No mastoid effusion. No sinus air-fluid level. IMPRESSION: Atrophy with chronic microvascular changes and old lacunar infarction left basal ganglia No acute finding Dictated by: Raman Jones MD 09/10/2020 06:26 Raman Jones MD in [place] 09/10/2020 06:26
[2020-09-09 18:51] LABS: NT Pro Brain Natriuretic Pep. 323 pg/mL (0-125)
[2020-09-09 18:54] LABS: Troponin I < 0.01 ng/ml (0.00-0.034)
--- NOTE | 2020-09-09 18:58 | PC.NURSE ---
Pt was laying in the bed when came out and said she thought pt was fixing to have a seizure. Pt began to jerk and twitch, we were immediately at bedside and did not appear that pt was having seizure activity. MD advises he would like the magnet placed on pt chest at this time. We placed magnet on pt's chest and brought crash cart into the room and placed pt on monitor with pads. awaiting labs before contacting Dr. Parish
--- NOTE | 2020-09-09 18:59 | PC.NURSE ---
Patient to radiology at this time, accompanied by Krystyna Medic
--- NOTE | 2020-09-09 19:14 | PC.NURSE ---
speaking with Dr. Lima
--- NOTE | 2020-09-09 19:15 | PC.NURSE ---
pt back from RAD
--- NOTE | 2020-09-09 19:17 | PC.NURSE ---
speaking to Dr. Parish
--- NOTE | 2020-09-09 19:20 | PC.NURSE ---
advised staff to remove magnet off of pt at this time. pt remains on Zoll at this time. pt is sitting up in bed and denies any pain at this time.
--- NOTE | 2020-09-09 19:42 | PC.NURSE ---
pt came out of room and asked if pt could eat. MD instructed her that she was more than welcome to go get him food like he wanted. pt asked about going up to the room with him when she was informed of the visiting hours being 9-5 7 days a week. pt was upset and stated we have both had COVID i should be able to go to the floor with him. This nurse continued to apologize and informed her that is was just hospital policy.
[2020-09-09 19:49] LABS: Coronavirus 19 IgG Antibody Positive (Negative); Coronavirus 19 IgM Antibody Negative (Negative)
--- NOTE | 2020-09-09 20:28 | PC.NURSE ---
pt back with pt food
--- NOTE | 2020-09-09 20:29 | PC.NURSE ---
pt ambulated to and from bathroom independently at this time. pt tolerated well and denies any pain at this time
--- NOTE | 2020-09-09 20:54 | PC.NURSE ---
PT ARRIVED TO THE FLOOR VIA W/C FROM ED WITH STAFF AT 2053.
[2020-09-09 22:07] LABS: Troponin I < 0.01 ng/ml (0.00-0.034)
[2020-09-10] VITALS: BP 121/64; PULSE 70; PULSE 82; TEMP 36.7; O2SAT 96
[2020-09-10 01:06] LABS: Troponin I < 0.01 ng/ml (0.00-0.034)
[2020-09-10 04:00] VITALS: BP 124/62; PULSE 80; RESP 18; TEMP 36.7; O2SAT 97
--- NOTE | 2020-09-10 05:29 | PC.NURSE ---
shift summary uneventful night. cardiac catheterization technician has shown paced rhythm with rate 70s to 80s. all pulses palpable. breath sounds clear, neurologically intact. voiding clear yellow urine per urinal. denies nausea, vomiting, diarrhea, soa or pain.
[2020-09-10 06:16] LABS: POC Glucose,Bedside 136 (70-110)
[2020-09-10 06:48] LABS: Basophils % 0.3 % (0.1-2.0); Eosinophils # 0.1 K/mm3 (0.0-0.4); Eosinophils % 0.7 % (0.1-12.0); Hematocrit 47.8 % (42.0-52.0); Hemoglobin 15.7 g/dL (14.1-18.0); Lymphocytes # 1.7 K/mm3 (0.7-4.5); Lymphocytes % 19.1 % (10-50); Mean Corpuscular HGB Conc 32.8 g/dL (31.8-35.4); Mean Corpuscular Hemoglobin 32.1 pg (27.0-31.2); Mean Platelet Volume 7.8 fl (7.4-10.4); Monocytes # 0.9 K/mm3 (0.1-1.0); Monocytes % 10.3 % (1.7-9.3); Neutrophils # 6.1 K/mm3 (1.8-7.8); Neutrophils % 69.5 % (37.0-80.0); Platelet Count 195 K/mm3 (142-424); Red Blood Count 4.88 M/mm3 (4.60-6.20); Red Cell Distribution Width 13.5 % (11.5-17.5); White Blood Count 8.8 K/mm3 (4.8-10.8)
--- NOTE | 2020-09-10 06:56 | HMH.HP ---
*Admission Date: 09/09/20 *Chief complaint: tremor, shaking, dizzy *History of present illness: 65-year-old male with extensive cardiac history, diabetes, chronic pain treatment, and diagnosis of Covid on [place] presented to the ER with episode of shaking, tremor and feeling dizzy. States that he has been more anxious since his diagnosis of COVID-19 and has been having more frequent tremors when his anxiety is severe. Not on any anxiety medication at home. His episode of dizziness given concern for his heart which led him to come to the ER for assessment. In the ER, he was noted to have an episode of shaking but remained coherent throughout it. Concern for his pacemaker misfiring so a magnet was placed on his chest. This slightly decreased his tremor but did not stop it altogether. Patient denied any pain during this episode, palpitations, shock sensation, chest pressure, shortness of breath. States he has had these more frequently since his diagnosis. He has been less active, is afraid to exert himself and has also been fatigued. Denies alvaro syncope, nausea, vomiting, shortness of breath. Has had mild respiratory symptoms. This morning states he feels well but did not sleep well overnight. States he would sleep better at home. [facility] History I have reviewed the patient's past medical history: Yes Medical History: Reports:: Atrial Fibrillation, Cardiomyopathy, Coronary Artery Disease, Diabetes Mellitus Type 2, Hyperlipidemia, Hypertension, Internal Pacemaker, Myocardial Infarction Denies:: Cancer, Diabetes Mellitus Type 1, MRSA, Seizures *Have you ever received a pneumonia vaccine?: No *Have you received a flu vaccine this season?: Yes Other Medical History: Reports: Hypothyroidism Other Surgeries: Yes: Angiogram, Angioplasty, Cardiac Catheterization, Coronary Stent, Pacemaker Amputation: No Fractures: No - *Social History Last grade of school completed: 5th or 6th Smoking Status: Former smoker Tobacco Type: cigarettes #Yrs smoked (if former smoker): 40 Alcohol Intake: never Alcohol Intake Frequency:: other Substance Use Type: denies use *Occupational Status:: retired Housing: house Household Members: spouse *Travel in the last 8 weeks: None Family Hx:: Diabetes Review of Systems - Review of Systems Review of systems:: pertinent systems reviewed and negative unless documented below (14 point review of systems performed, pertinent positives and negatives as per HPI) - *Neurologic Reports dizziness, Denies headache(s), Denies numbness, Denies sensory deficit, Denies tingling, Denies weakness Meds Home Medications Medication Instructions Recorded Confirmed Type Finasteride [Proscar 5mg Tablet] 5 mg PO DAILY 11/13/17 09/09/20 History Levothyroxine Sodium 75 mcg PO DAILY 11/13/17 09/09/20 History [Levothyroxine 75mcg (0.075mg) Tab] aspirin 81 mg tablet,delayed 81 mg PO DAILY tab 11/22/17 09/09/20 History release empagliflozin 25 mg tablet 25 mg PO DAILY 04/14/18 09/09/20 History atorvastatin 80 mg tablet 80 mg PO HS #30 tab 01/12/19 09/09/20 Rx lisinopril 2.5 mg tablet 2.5 mg PO DAILY #30 tab 01/12/19 09/09/20 Rx buprenorphine 8 mg-naloxone 2 mg 1.25 tab SUBLINGUAL DAILY tab 01/18/20 09/10/20 History sublingual tablet sitagliptin 100 mg tablet 100 mg PO DAILY tab 01/18/20 09/09/20 History isosorbide mononitrate 30 mg 15 mg PO DAILY #90 tab 03/05/20 09/09/20 Rx tablet,extended release 24 hr spironolactone 25 mg tablet 50 mg PO DAILY #180 tab 04/17/20 09/09/20 Rx clopidogrel 75 mg tablet 75 mg PO DAILY #30 tab 07/22/20 09/09/20 Rx carvedilol 25 mg tablet 37.5 mg PO BID #90 tab 08/09/20 09/09/20 Rx Apixaban [Eliquis] 5 mg PO BID 09/09/20 09/10/20 History Allergies Allergy/AdvReac Type Severity Reaction Status Date / Time famotidine [From Pepcid] Allergy Hives Verified 09/09/20 22:01 Exam Vital signs and Labs for Last 24 Hours: Temp Pulse Resp BP Pulse Ox 98.0 F 80 18 124/62 97
[2020-09-10 07:02] LABS: Alanine Aminotransferase 25 U/L (12-78); Albumin Level 4.4 g/dl (3.5-5.0); Albumin/Globulin Ratio 1.4 (1.1-1.8); Alkaline Phosphatase 65 U/L (38-126); Anion Gap 14.5 mEq/L (5-15); Aspartate Amino Transferase 36 U/L (17-59); Bilirubin,Total 0.6 mg/dl (0.2-1.3); Blood Urea Nitrogen 29 mg/dl (9-20); Calcium 9.6 mg/dl (8.4-10.2); Carbon Dioxide 24 mmol/L (22.0-30.0); Chloride 102 mmol/L (98-107); Chol/HDL Ratio 4.2 (1-3.5); Cholesterol 151 mg/dl (140-200); Creatinine Clearance Estimated 100 mL/min (50-200); Estimated Glomerular Filt Rate 75 ml/min (>60); GFR (African American) 90 ML/MIN (>60); Globulin 3.1 g/dL (1.3-3.2); Glucose 150 mg/dl (74-100); HDL Cholesterol 36 mg/dl (40-60); Magnesium 2.2 mg/dl (1.6-2.3); Potassium 4.5 mmoL/L (3.5-5.1); Sodium 136 mmol/L (136-145); Total Protein,Serum 7.5 g/dl (6.3-8.2); Triglycerides 114 mg/dl (30-150); VLDL Cholesterol 23 mg/dL (0-40)
[2020-09-10 07:13] LABS: Direct LDL Cholesterol 83.56 mg/dL (100-129)
[2020-09-10 07:32] LABS: Thyroid Stimulating Hormone 1.55 uIU/mL (0.465-4.68)
--- NOTE | 2020-09-10 07:46 | P.CONPHA_ITS ---
[facility] Pharmacy VTE Monitoring - Patient Demographics Admission date: 09/10/20 Report Date: 09/10/20 Time: 07:46 Allergies/Adverse Reactions: Patient Allergies famotidine [From Pepcid] Allergy (Verified 09/09/20 22:01) Hives Height: 1.8 m Weight: 97.324 kg Patient Problems: Current Active Problems Syncope (Acute) - VTE Risk Labs: VTE Related Lab Results Hgb 15.7 g/dL (14.1-18.0) 09/10/20 06:08 Hct 47.8 % (42.0-52.0) 09/10/20 06:08 Plt Count 195 K/mm3 (142-424) 09/10/20 06:08 BUN 29 mg/dl (9-20) H D 09/10/20 06:08 Creatinine 1.00 mg/dl (0.66-1.25) 09/10/20 06:08 Estimated Creat Clear 100 mL/min (50-200) 09/10/20 06:08 Was VTE Risk Assessment Performed: Yes VTE Score: 4 VTE Risk Level: Low Risk Clinical Trial Participant: No - Prophylaxis VTE Prophylaxis Ordered?: Yes Types of VTE Prophylaxis: TEDS Knee High
[2020-09-10 08:00] VITALS: BP 108/54; PULSE 71; RESP 18; TEMP 36.8; O2SAT 98
--- NOTE | 2020-09-10 09:22 | HMH.CNCARD ---
History of Present Illness Consult date: 09/10/20 Requesting physician: Sukh Lima Consult reason: known to you Chief complaint: dizziness History of present illness: This is a 65-year-old white gentleman who presented to the emergency department with complaints of dizziness and an episode of shaking and tremors. The patient states that he was feeling really anxious and has been feeling anxious since his diagnosis of COVID-19 on . He states that he has been having the tremors and shaking more frequently with severe anxiety. The patient states that his dizziness yesterday was really severe a.m. his shaking was almost uncontrollable. He did get concerned that it could be his heart and that something was wrong with his defibrillator. The patient did come into the emergency department and continued to have this shakiness and tremor. He was coherent and able to answer all questions and he remained alert during this time. A magnet was placed over his AICD in case there was a missed fire of his device. His tremor did slightly decrease once the magnet was applied but it did not stop. The magnet was then removed because it did not seem to be his AICD causing a problem as his symptoms did not resolve. The patient denies any chest pain or pressure. He denies any racing of the heart. He denies any shocking sensations. He denies any shortness of breath or edema. He denies any fever, chills, nausea, vomiting, diarrhea, PND or orthopnea. The patient denies any true syncopal episodes. [facility] History I have reviewed the patient's past medical history: Yes Medical History: Reports:: Atrial Fibrillation, Cardiomyopathy, Coronary Artery Disease, Diabetes Mellitus Type 2, Hyperlipidemia, Hypertension, Internal Pacemaker, Myocardial Infarction Denies:: Cancer, Diabetes Mellitus Type 1, MRSA, Seizures *Have you ever received a pneumonia vaccine?: No *Have you received a flu vaccine this season?: Yes Other Medical History: Reports: Hypothyroidism Other Surgeries: Yes: Angiogram, Angioplasty, Cardiac Catheterization, Coronary Stent, Pacemaker Amputation: No Fractures: No - *Social History Last grade of school completed: 5th or 6th Smoking Status: Former smoker Tobacco Type: cigarettes #Yrs smoked (if former smoker): 40 Alcohol Intake: never Alcohol Intake Frequency:: other Substance Use Type: denies use *Occupational Status:: retired Housing: house Household Members: spouse *Travel in the last 8 weeks: None Family Hx:: Diabetes Meds Home Medications Medication Instructions Recorded Confirmed Type Finasteride [Proscar 5mg Tablet] 5 mg PO DAILY 11/13/17 09/09/20 History Levothyroxine Sodium 75 mcg PO DAILY 11/13/17 09/09/20 History [Levothyroxine 75mcg (0.075mg) Tab] aspirin 81 mg tablet,delayed 81 mg PO DAILY tab 11/22/17 09/09/20 History release empagliflozin 25 mg tablet 25 mg PO DAILY 04/14/18 09/09/20 History atorvastatin 80 mg tablet 80 mg PO HS #30 tab 01/12/19 09/09/20 Rx lisinopril 2.5 mg tablet 2.5 mg PO DAILY #30 tab 01/12/19 09/09/20 Rx buprenorphine 8 mg-naloxone 2 mg 1.25 tab SUBLINGUAL DAILY tab 01/18/20 09/10/20 History sublingual tablet sitagliptin 100 mg tablet 100 mg PO DAILY tab 01/18/20 09/09/20 History isosorbide mononitrate 30 mg 15 mg PO DAILY #90 tab 03/05/20 09/09/20 Rx tablet,extended release 24 hr spironolactone 25 mg tablet 50 mg PO DAILY #180 tab 04/17/20 09/09/20 Rx clopidogrel 75 mg tablet 75 mg PO DAILY #30 tab 07/22/20 09/09/20 Rx carvedilol 25 mg tablet 37.5 mg PO BID #90 tab 08/09/20 09/09/20 Rx Apixaban [Eliquis] 5 mg PO BID 09/09/20 09/10/20 History Citalopram Hydrobromide 10 mg PO DAILY 30 Days #30 tab 09/10/20 Rx [Citalopram 10mg Tablet] Pantoprazole Sodium [Protonix 40mg 40 mg PO DAILY 30 Days #30 09/10/20 Rx tablet] tablet. Allergies Allergy/AdvReac Type Severity Reaction Status Date / Time famotidine [From Pepcid] Allergy Hives Verified 09/09/20 22:01
--- NOTE | 2020-09-10 09:47 | HMH.DCSUM ---
General - General Admission date:: 09/09/20 Discharge date: 09/10/20 HPI HPI: 65-year-old male with extensive cardiac history, diabetes, chronic pain treatment, and diagnosis of Covid on [place] presented to the ER with episode of shaking, tremor and feeling dizzy. States that he has been more anxious since his diagnosis of COVID-19 and has been having more frequent tremors when his anxiety is severe. Not on any anxiety medication at home. His episode of dizziness given concern for his heart which led him to come to the ER for assessment. In the ER, he was noted to have an episode of shaking but remained coherent throughout it. Concern for his pacemaker misfiring so a magnet was placed on his chest. This slightly decreased his tremor but did not stop it altogether. Patient denied any pain during this episode, palpitations, shock sensation, chest pressure, shortness of breath. States he has had these more frequently since his diagnosis. He has been less active, is afraid to exert himself and has also been fatigued. Denies alvaro syncope, nausea, vomiting, shortness of breath. Has had mild respiratory symptoms. This morning states he feels well but did not sleep well overnight. States he would sleep better at home. Hospital Course Hospital Course: Admitted for shaking tremor. Concern for anxiety in the setting of COVID-19 diagnosis. Cardiology was consulted, ruled out abnormality with his AICD. Recommended continued medical management of blood pressure, coronary artery disease, hyperlipidemia. Medically stable for discharge home with close follow-up to monitor response to antidepressants. Patient has no complaints today other than anxiety. We are happy to see him in our office beginning of next week for monitoring of Celexa and anxiety Objective Vital signs: Temp Pulse Resp BP Pulse Ox 98.3 F 71 18 108/54 L 98 09/10/20 08:00 09/10/20 08:00 09/10/20 08:00 09/10/20 08:00 09/10/20 08:00 Narrative: - Constitutional no acute distress, obese - *Routine HEENT Exam Head: Present: normocephalic Eye: Present: EOMI, PERRL ENT: Present: mucous membranes moist - *Routine Neck Exam Present: supple. Absent: lymphadenopathy - *Routine Respiratory Exam Present: CTA bilaterally - *Routine Cardiovascular Exam Present: RRR - *Routine Abdominal Exam Present: soft, normoactive bowel sounds. Absent: tenderness - *Routine Extremities Exam Absent: cyanosis, clubbing, edema - *Routine Skin Exam Present: warm. Absent: rash - *Routine Neurological Exam Present: alert, oriented X3 - Routine Psychiatric Exam Present: normal thought process, anxious. Absent: suicidal ideation Results Labs on day of discharge: Labs from last 24 hours 09/10/20 09/10/20 09/10/20 06:08 06:08 06:08 WBC 8.8 RBC 4.88 Hgb 15.7 Hct 47.8 MCV 98.0 H MCH 32.1 H MCHC 32.8 RDW 13.5 Plt Count 195 MPV 7.8 Neut % (Auto) 69.5 Lymph % (Auto) 19.1 Trinity % (Auto) 10.3 H Eos % (Auto) 0.7 Baso % (Auto) 0.3 Neut # (Auto) 6.1 Lymph # (Auto) 1.7 Trinity # (Auto) 0.9 Eos # (Auto) 0.1 Baso # (Auto) 0.0 Sodium 136 Potassium 4.5 Chloride 102 Carbon Dioxide 24 Anion Gap 14.5 BUN 29 H D Creatinine 1.00 Estimated Creat Clear 100 Estimated GFR 75 Est GFR ( Amer) 90 Glucose 150 H D POC Glucose 136 H Calcium 9.6 Magnesium 2.2 Total Bilirubin 0.6 AST 36 ALT 25 Alkaline Phosphatase 65 Troponin I NT-Pro-B Natriuret Pep Total Protein 7.5 Albumin 4.4 Globulin 3.1 Albumin/Globulin Ratio 1.4 Triglycerides 114 Cholesterol 151 LDL Cholesterol Direct 83.56 L VLDL Cholesterol 23 HDL Cholesterol 36 L Cholesterol/HDL Ratio 4.2 H TSH 1.55 SARS-CoV-2 IgG Ab (Rapid) SARS-CoV-2 IgM Ab (Rapid) 09/10/20 09/09/20 09/09/20 00:20 21:23 18:21 WBC
== END 2020-09-10 11:40 | disposition home or self-care (01) ==
LOC: ER 19:27 → 2ND 19:38
PROVIDERS: Admitting Provider Internal Medicine Adolescent Medicine; Emergency Provider Emergency Medicine; Visit Provider Internal Medicine Adolescent Medicine
DX: I11.0 Hypertensive heart disease with heart failure; I50.42 Chronic combined systolic (congestive) and diastolic (congestive) heart failure; I25.2 Old myocardial infarction; I25.5 Ischemic cardiomyopathy; E03.9 Hypothyroidism, unspecified; Z86.16 Personal history of COVID-19; Z95.5 Presence of coronary angioplasty implant and graft; Z95.810 Presence of automatic (implantable) cardiac defibrillator; I48.91 Unspecified atrial fibrillation; Z79.01 Long term (current) use of anticoagulants; Z79.82 Long term (current) use of aspirin; Z79.84 Long term (current) use of oral hypoglycemic drugs; Z79.899 Other long term (current) drug therapy
CPT/HCPCS: 36415; 70450; 71045; 80048; 80053; 80061; 82962; 83735; 83880; 84443; 84484; 85025; 86328; 93005; 99284; G0378

== ENCOUNTER → 2020-09-20 12:46 | Outpatient (CLI) | payer MEDICARE, SELFPAY ==
--- NOTE | 2020-09-20 | CA_ITS ---
APPROVED REPORT Eligibility Services Representative: CT Laterality: Bilateral Study Quality: Fair, Due to body habitus. Indications: dizziness Risk Factors Hypertension: Diabetes Doppler Spectral Velocity Analysis ECA (R) 108.00/15.40 cm/s ECA (L) 119.00/ cm/s dICA (R) 42.20/12.90 cm/s dICA (L) 44.60/19.00 cm/s Reese (R) 66.80/20.50 cm/s Reese (L) 54.10/20.70 cm/s pICA (R) 41.80/11.50 cm/s pICA (L) 40.60/15.70 cm/s dCCA (R) 59.00/13.20 cm/s dCCA (L) 45.70/15.70 cm/s pCCA (R) 108.00/16.50 cm/s pCCA (L) 62.20/15.00 cm/s Vert (R) 25.10/7.86 cm/s Vert (L) 27.70/ cm/s ICA/CCA 0.72 ICA/CCA 1.18 Findings Duplex evaluation demonstrates stenosis of the right proximal internal carotid artery in the range of 20-49%, lower end of scale. Duplex evaluation demonstrates stenosis of the left proximal internal carotid artery in the range of 20-49%, lower end of scale. Duplex evaluation demonstrates antegrade flow of the bilateral Vertebral Arteries. Difficult exam. Conclusion Duplex evaluation demonstrates stenosis of the right proximal internal carotid artery in the range of 20-49%, lower end of scale. Duplex evaluation demonstrates stenosis of the left proximal internal carotid artery in the range of 20-49%, lower end of scale. Duplex evaluation demonstrates antegrade flow of the bilateral Vertebral Arteries. Difficult exam. Electronically signed by : Raman Jones MD 09/20/2020 15:22:06
== END ==
PROVIDERS: PCP Internal Medicine Adolescent Medicine; Visit Provider Nurse Practitioner Family
DX: R42 Dizziness and giddiness (principal)
CPT/HCPCS: 93880

== ENCOUNTER 2021-02-26 23:11 | Emergency (ER) | payer MEDICARE, SELFPAY ==
--- NOTE | 2021-02-26 23:18 | PC.NURSE ---
raymond spoke with bety and he stated to have pt come in tomorrow @ 9am
[2021-02-26 23:19] VITALS: BP 00/00; PULSE 0; RESP 0; TEMP -17.7; TEMP 0
== END 2021-02-26 23:23 | disposition left against medical advice (07) ==
PROVIDERS: Emergency Provider Emergency Medicine; PCP Internal Medicine Adolescent Medicine
DX: Z53.21 Procedure and treatment not carried out due to patient leaving prior to being seen by health care provider (principal)
CPT/HCPCS: G0463; 99211

== ENCOUNTER → 2021-11-03 13:51 | Outpatient (CLI) | payer MEDICARE, SELFPAY ==
--- NOTE | 2021-11-03 13:58 | CT_ITS ---
FINAL REPORT TECHNIQUE: Axial images through the abdomen and pelvis were performed without contrast.This study was performed with techniques to keep radiation doses as low as reasonably achievable, (ALARA). Individualized dose reduction techniques using automated exposure control or adjustment of mA and/or kV according to the patient's size were employed. CLINICAL HISTORY: CYSTITIS W/HEMATURIA FINDINGS: ABDOMEN: The lung bases demonstrate mild bibasilar atelectasis. The heart size is normal. Limited images of the liver are unremarkable. Gallbladder is present. The spleen is normal. No adrenal mass is identified. The aorta is normal in caliber. There is no significant free fluid or adenopathy. There is no nephrolithiasis. There is no hydronephrosis. Moderate vascular calcifications are noted. PELVIS: The appendix is normal. There is mild wall thickening of the urinary bladder which is likely inflammatory. There is no significant free fluid or adenopathy. There are bilateral L5 pars defects. IMPRESSION: No hydronephrosis or nephrolithiasis. Mild wall thickening of the urinary bladder, likely inflammatory. Reviewed, Interpreted and Dictated by David Villalpando III, MD Transcribed by Radha Sepulveda Authenticated by David Villalpando III, MD on 11/03/2021 03:50:56 PM [facility]
== END ==
PROVIDERS: PCP Internal Medicine Adolescent Medicine; Visit Provider Nurse Practitioner Family
DX: N30.01 Acute cystitis with hematuria (principal)
CPT/HCPCS: 74176

== ENCOUNTER 2023-03-01 15:42 | Emergency (ER) | payer MEDICARE, SELFPAY ==
[2023-03-01] VITALS (10 sets, daily range): BP systolic 109–139; BP diastolic 67–80; PULSE 64–71; RESP 18–20; TEMP 36.8; O2SAT 94–98; BMI 43.4
--- NOTE | 2023-03-01 15:42 | ECG_ITS ---
APPROVED REPORT Exam: Resting ECG HR:66 bpm ECG Measurements Heart Rate 66 AXES QRSd 148 QRS -17 QT 406 T 3 QTc 420 Conclusion UNCERTAIN IRREGULAR RHYTHM INTRAVENTRICULAR CONDUCTION DELAY [130+ ms QRS DURATION] ABNORMAL ECG UNCONFIRMED REPORT Electronically signed by : Darius Alvarez MD 03/01/2023 19:31:42
--- NOTE | 2023-03-01 16:04 | XR_ITS ---
FINAL REPORT CLINICAL HISTORY: chest pain COMPARISON: 09/09/2020 FINDINGS: SINGLE VIEW CHEST The heart size is normal. A pacer is noted. No acute pulmonary abnormality is identified. The bony thorax is intact. IMPRESSION: No acute cardiopulmonary process identified. Reviewed, Interpreted and Dictated by David Villalpando III, MD Transcribed by Shruthi Finney Authenticated and [facility]
--- NOTE | 2023-03-01 16:13 | HMH.EDGENADL ---
Discharge Plan Disposition Chief Complaint: Chest Pain Prescriptions Prescriptions: No Action atorvastatin 80 mg tablet 80 mg PO DAILY Patient Comments: TAKE 1 TABLET 1 TIME EACH DAY isosorbide mononitrate 30 mg tablet extended release 24 hr 15 mg PO DAILY Patient Comments: TAKE 1/2 TABLET 1 TIME EACH DAY FOR HIGH BLOOD PRESSURE clopidogrel 75 mg tablet 75 mg PO DAILY spironolactone 25 mg tablet 50 mg PO DAILY Patient Comments: TAKE 2 TABLETS 1 TIME EACH DAY bisoprolol fumarate 10 mg tablet 10 mg PO AM levothyroxine 75 mcg tablet 75 mcg PO DAILY Patient Comments: TAKE 1 TABLET 1 TIME EACH DAY bisoprolol fumarate 5 mg tablet 5 mg PO PM pantoprazole 40 mg tablet,delayed release (DR/EC) 40 mg PO DAILY metformin 1,000 mg tablet 1,000 mg PO DAILY Patient Comments: TAKE ONE (1) TABLET EVERY DAY BY ORAL ROUTE. aspirin 81 mg Tablet 81 mg PO DAILY lisinopril 2.5 mg tablet 2.5 mg PO DAILY Patient Comments: TAKE 1 TABLET 1 TIME EACH DAY finasteride 5 mg tablet 5 mg PO DAILY Patient Comments: TAKE 1 TABLET 1 TIME EACH DAY levocetirizine 5 mg tablet 5 mg PO DAILY Patient Comments: TAKE 1 TABLET 1 TIME EACH DAY IN THE EVENING buprenorphine-naloxone 8-2 mg film 1 film sublingual DAILY Patient Comments: PLACE 1 FILM UNDER THE TONGUE AND ALLOW TO DISSOLVE 1 TIME EACH DAY Jardiance 25 mg tablet 25 mg PO DAILY Trulicity 1.5 mg/0.5 mL pen injector 1.5 mg SQ WEEKLY Patient Comments: INJECT ONE AND A HALF (1 & 1/2) MG EVERY WEEK BY SUBCUTANEOUS ROUTE Referrals Follow up/Referrals: Provider,ReferralMD [Referring] - See instructions Discharge ED Provider: Shital Angulo General Adult HPI General Chief complaint: Chest Pain Stated complaint: Chest pain Time Seen by Provider: 03/01/23 16:09 Mode of Arrival: Ambulatory Source of Information: Patient Limitations: No Limitations Description of Symptoms (Recalled from ER Triage Doc. by RN): 67 M presents from home with intermittent chest pain. Patient states he awoke this AM with right sided, sharp, non-radiating chest pain. It comes and goes, but he cannot tell what makes it worse or better. Patient has a pacemaker and defibrilator which was placed by Dr. Parish some time ago. Patient denies pain at this time. NAD, VSS History of Present Illness HPI narrative: Patient is a 67-year-old male presenting today with chest pain. He has a known history of coronary artery disease has an AICD and [address] Parish. He is on dual antiplatelet therapy states also has diabetes. He had 3 episodes of chest pain today each lasting just a few minutes located in the right anterior side of his chest without any radiation, dyspnea, diaphoresis, or nausea. No exertional symptoms associate with this as well. His symptoms have completely resolved and he has no ongoing symptoms at the moment. 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
[2023-03-01 16:15] LABS: Basophils % 0.6 % (0.1-2.0); Eosinophils # 0.1 K/mm3 (0.0-0.4); Eosinophils % 1.7 % (0.1-12.0); Hematocrit 48.3 % (42.0-52.0); Hemoglobin 14.9 g/dL (14.1-18.0); Lymphocytes # 1.4 K/mm3 (0.7-4.5); Lymphocytes % 19.7 % (10-50); Mean Corpuscular HGB Conc 30.8 g/dL (31.8-35.4); Mean Corpuscular Hemoglobin 30.8 pg (27.0-31.2); Mean Corpuscular Volume 100.1 fl (80-94); Mean Platelet Volume 8.1 fl (7.4-10.4); Monocytes # 0.5 K/mm3 (0.1-1.0); Monocytes % 7.2 % (1.7-9.3); Neutrophils % 70.8 % (37.0-80.0); Platelet Count 209 K/mm3 (142-424); Red Blood Count 4.83 M/mm3 (4.60-6.20); Red Cell Distribution Width 13.3 % (11.5-17.5); White Blood Count 7.1 K/mm3 (4.8-10.8)
[2023-03-01 16:17] LABS: Chloride 101 mmol/L (98-107); Potassium 4.8 mmoL/L (3.5-5.1); Sodium 138 mmol/L (136-145)
[2023-03-01 16:19] LABS: Blood Urea Nitrogen 17 mg/dl (9-20); Creatinine Clearance Estimated 52 mL/min (50-200); Estimated Glomerular Filt Rate 84 ml/min (>60); GFR (African American) 102 ML/MIN (>60)
[2023-03-01 16:20] LABS: Alanine Aminotransferase 25 U/L (12-78); Albumin Level 4.5 g/dl (3.5-5.0); Albumin/Globulin Ratio 1.4 (1.1-1.8); Alkaline Phosphatase 58 U/L (38-126); Anion Gap 14.8 mEq/L (5-15); Aspartate Amino Transferase 34 U/L (17-59); Bilirubin,Total 0.5 mg/dl (0.2-1.3); Calcium 9.2 mg/dl (8.4-10.2); Carbon Dioxide 27 mmol/L (22.0-30.0); Globulin 3.3 g/dL (1.3-3.2); Glucose 146 mg/dl (74-100); Total Protein,Serum 7.8 g/dl (6.3-8.2)
[2023-03-01 16:30] LABS: NT Pro Brain Natriuretic Pep. 1270 pg/mL (0-125)
[2023-03-01 16:33] LABS: Troponin I < 0.01 ng/ml (0.00-0.034)
--- NOTE | 2023-03-01 16:59 | PC.NURSE ---
ROUNDED ON PT NOTHING NEEDED, FAMILY AT BS
--- NOTE | 2023-03-01 18:42 | PC.NURSE ---
updated pt that second top will be drawled in about ten min from nurse then once resulted will determine if he goes home or not, visitors at bs
--- NOTE | 2023-03-01 19:03 | PC.NURSE ---
LAB at BS to obtain second trop
--- NOTE | 2023-03-01 19:30 | PC.NURSE ---
rounded on pt let him know we are still waiting for lab results, call light at bs
[2023-03-01 19:49] LABS: Troponin I < 0.01 ng/ml (0.00-0.034)
--- NOTE | 2023-03-01 20:14 | PC.NURSE ---
Dr. Angulo at BS
== END 2023-03-01 20:19 | disposition home or self-care (01) ==
PROVIDERS: Emergency Provider Student in an Organized Health Care Education/Training Program; PCP Internal Medicine Adolescent Medicine
DX: R07.9 Chest pain, unspecified (principal); I25.10 Atherosclerotic heart disease of native coronary artery without angina pectoris; E11.9 Type 2 diabetes mellitus without complications; Z95.810 Presence of automatic (implantable) cardiac defibrillator; F17.210 Nicotine dependence, cigarettes, uncomplicated
CPT/HCPCS: 36415; 71045; 80053; 83880; 84484; 85025; 93005; 99285

== ENCOUNTER → 2023-08-03 12:49 | Outpatient (CLI) | payer MEDICARE, SELFPAY ==
--- NOTE | 2023-08-03 12:50 | CA_ITS ---
APPROVED REPORT EXAM: Comprehensive 2D, Doppler, and color-flow Echocardiogram Cement Finisher: Tenisha Walsh CRT Ht: 5 ft 11 in Wt: 238lbs BSA: 2.27 BP: 123/73 mmHg Indications: Atrial Fibrillation, CAD, Cardiomyopathy, stent, AICD ef 40-45% on echo 11/14/17 Echo Enhancing Agent Indication: Endocardial border delineation Agent(s) / Amount(s) Used: Definity 2 cc Comments: Definity 2D Dimensions Left Atrium 4.43 cm LA Volume 55.80 mL LVOT 2.06 cm (M/F) 1.5-2.5 LA Volume Index 24.60 mL/m2 (M/F) 16-34 EF AP2 24.7 % GL Strain -9.0 % M-Mode Dimensions RVDd 2.57 cm (0.9-2.6) LVDd 6.50 cm (3.5-5.7) Ao Diam 3.96 cm (2.0-3.7) LVDs 5.18 cm (3.5-5.7) IVSd 0.96 cm (0.6-1.1) PWd 0.71 cm (0.6-1.1) EF (Teich) 40.60% FS 20.30% EDV (Teich) 216.00 mL TAPSE 2.38 (<1.7) ESV (Teich) 128.40 mL LV Diastology E Decel Time 297 (160-240 msec) E/A Ratio 3.36 MED E' 6.4 (>= 7 cm/sec) MED A' 2.20 cm/s E'/MED E' Ratio 13.58 (<= 14) LAT E' 9.2 (>= 10 cm/sec) LAT A' 3.10 cm/s E/LAT E' Ratio 9.45 (<= 14) Aortic Valve AoV Peak Hakan. 117.0 (50-130 cm/s) AO Peak GR. 5.50 mmHg Mitral Valve MV E Max Hakan. 87.0 (40-130 cm/s) MV A Velocity 26.0 (40-130 cm/s) E/A Ratio 3.36 MV Decel. Time 297 (160-240 ms) Tricuspid Valve TR P. Velocity 253.00 cm/s RAP Estimate 10.00 mmHg RVSP 35.60 mmHg Left Ventricle The left ventricle is moderately dilated (LVEDVi = 88 ml/m2). The left ventricular systolic function is severely reduced. There is normal left ventricular wall thickness. There is severe global hypokinesis present. The inferior and inferior septal LV mi appear nearly akinetic. Diastolic function is indeterminate due to atrial fibrillation. No left ventricle thrombus noted on this study. LVEF is 20-25%. Right Ventricle The right ventricle is normal size. The right ventricular systolic function is normal. A device lead is noted in the right ventricle. Atria The left atrium size is normal. The right atrium size is normal. Aortic Valve The aortic valve is mildly thickened. There is no aortic valvular stenosis. No aortic regurgitation is present. Mitral Valve The mitral valve leaflets are mildly thickened. The posterior MV leaflet appears to be tethered and restricted in motion. No evidence of mitral valve stenosis. Mild mitral regurgitation. The MR jet is eccentric and posteriorly directed. Tricuspid Valve The tricuspid valve leaflets are thin and pliable. Trace tricuspid regurgitation. There is insufficient TR jet to estimate RVSP. Pulmonic Valve The pulmonary valve is normal in structure. Trace pulmonic regurgitation. Great Vessels The aortic root is normal in size. The ascending aorta is normal in size. IVC is normal in size and collapses >50% with inspiration. Pericardium There is no pericardial effusion. Other Information Study Quality: Fair Conclusion Mildly dilated moderately dilated LV with severe reduction in LV systolic function (LVEF 20-25%). Severe global hypokinesis present. The inferior and inferior septal LV mi appear nearly akinetic. The posterior MV leaflet appears tethered with restricted motion. Mild MR. The MR jet is eccentric and posteriorly directed. Compared to prior study from 2018, there is now worsening of the LVEF from 40-45% to 20-25%. Electronically signed by : Eleanor Vallecillo MD 08/06/2023 23:55:19
== END ==
PROVIDERS: PCP Internal Medicine Adolescent Medicine; Visit Provider Nurse Practitioner
DX: I25.10 Atherosclerotic heart disease of native coronary artery without angina pectoris (principal); I25.5 Ischemic cardiomyopathy; I48.91 Unspecified atrial fibrillation; I50.9 Heart failure, unspecified
CPT/HCPCS: 93306; Q9957

== ENCOUNTER 2023-09-07 08:42 | Day surgery (SDC) | payer MEDICARE, SELFPAY ==
[2023-09-07] VITALS (12 sets, daily range): BP systolic 103–230; BP diastolic 50–88; PULSE 57–91; RESP 18–19; TEMP 36.6; O2SAT 92–99; BMI 33.2
--- NOTE | 2023-09-07 08:26 | IR_ITS ---
APPROVED REPORT Patient Location: Outpatient Contact Lens Technician: JAIRO Hickey RT (R) PROCEDURES Left heart catheterization Left ventriculogram Selective coronary angiogram INDICATION Ischemic cardiomyopathy, Abnormal Myoview, Study congestive heart failure, Informed consent was obtained prior to the procedure. COMPLICATIONS NONE Estimated Blood Loss: LESS THAN 10 ML TECHNIQUE One percent lidocaine used to anesthetize the right anterior aspect of the wrist. The right radial artery was accessed via the Seldinger technique. A 6 Mauritian sheath was placed in the right radial artery. 2.5 mg of Verapamil, 800 mcg of nitroglycerin, 1mg Lidocaine and 5000 U Heparin were given through the arterial sheath. The papa catheter was also used to perform left heart catheterization, left ventriculogram and selective coronary angiogram. At the end of the procedure the sheath was removed good hemostasis was achieved using Traclet band, patient was transferred to the postop holding area in stable condition. ANGIOGRAPHIC RESULTS The left main artery Normal The left anterior descending artery Is proximally normal. Following the first septal zipper repairer there is a smooth 20 to 30% stenosis immediately proximal and transitioning into a widely patent mid LAD stent. Distal to the stent there is excellent transitioning into the alatna vessel. There is a mild mid myocardial bridge which compresses 10 to 20% during systole. The circumflex artery Is a large dominant vessel and is proximally normal. Distal to the first obtuse marginal artery the mid vessel has a 30 to 40% stenosis. The first obtuse marginal artery is moderate and has proximal mid vessel 30 to 40% stenosis The right coronary artery Is a patent yet vestigial sized vessel The RODRIGUEZ ventriculogram reveals Dilated ventricle global hypokinesis estimated ejection fraction 20 to 25% The left ventricular end-diastolic pressure 10 to 15 mmHg IMPRESSION Patent LAD stent as described above Mild to limit coronary disease as described above Reduced ejection fraction Normal left ventricular end-diastolic pressure PLAN 1. If the patient is RV pacing 40% of the time he is a candidate for cardiac resynchronization therapy. 2. Standard therapy for systolic heart failure 3. Therapy for ischemic heart disease Electronically signed by : Sterling Parish MD 09/07/2023 12:35:55
[2023-09-07 09:34] LABS: Basophils # 0.1 K/mm3 (0-0.2); Basophils % 0.6 % (0.1-2.0); Eosinophils # 0.1 K/mm3 (0.0-0.4); Eosinophils % 0.8 % (0.1-12.0); Hematocrit 51.4 % (42.0-52.0); Hemoglobin 17.2 g/dL (14.1-18.0); Lymphocytes # 1.3 K/mm3 (0.7-4.5); Lymphocytes % 13.9 % (10-50); Mean Corpuscular HGB Conc 33.4 g/dL (31.8-35.4); Mean Corpuscular Hemoglobin 33.4 pg (27.0-31.2); Mean Platelet Volume 8.3 fl (7.4-10.4); Monocytes # 0.6 K/mm3 (0.1-1.0); Monocytes % 5.9 % (1.7-9.3); Neutrophils # 7.5 K/mm3 (1.8-7.8); Neutrophils % 78.8 % (37.0-80.0); Platelet Count 251 K/mm3 (142-424); Red Blood Count 5.14 M/mm3 (4.60-6.20); Red Cell Distribution Width 13.6 % (11.5-17.5); White Blood Count 9.5 K/mm3 (4.8-10.8)
[2023-09-07] MEDS: CLOPIDOGREL 75MG TAB 75 MG PO (10:05)
[2023-09-07 10:07] LABS: Chloride 103 mmol/L (98-107); Potassium 4.3 mmoL/L (3.5-5.1); Sodium 137 mmol/L (136-145)
[2023-09-07 10:10] LABS: Anion Gap 20.3 mEq/L (5-15); Blood Urea Nitrogen 27 mg/dl (9-20); Calcium 10.1 mg/dl (8.4-10.2); Carbon Dioxide 18 mmol/L (22.0-30.0); Creatinine Clearance Estimated 106 mL/min (50-200); Estimated Glomerular Filt Rate 96 ml/min (>60); GFR (African American) 116 ML/MIN (>60); Glucose 145 mg/dl (74-100)
[2023-09-07] MEDS: 0.9 % SODIUM CHLORIDE 500 ML 25 ML IV (11:22)
[2023-09-07] MEDS: HEPARIN 1,000 UNITS/ML 10ML VIAL (CATH LAB) 10000 UNIT IV (11:22)
[2023-09-07] MEDS: LIDOCAINE 1% 10ML MDV 20 ML IJ (11:22)
[2023-09-07] MEDS: HEPARIN 1,000 UNITS/500ML NS (CATH LAB) 3000 UNIT IV (11:22)
[2023-09-07] MEDS: diphenhydrAMINE 50MG/ML VIAL 50 MG IV (11:23)
[2023-09-07] MEDS: NITROGLYCERIN 800MCG/8ML SYR (CATH LAB) 800 MCG IA (11:23)
[2023-09-07] MEDS: VERAPAMIL 2.5MG/ML 2ML VIAL 2.5 MG IV (11:44)
[2023-09-07] MEDS: MIDAZOLAM HCL 1MG/1ML 5ML VIAL 1 MG IV (12:21)
[2023-09-07] MEDS: FENTANYL 100MCG/2ML VIAL 50 MCG IV (12:22)
[2023-09-07] MEDS: IOPAMIDOL-370 (76%);100ML BOTTLE 50 ML IV (13:05)
== END 2023-09-07 15:20 | disposition home or self-care (01) ==
PROVIDERS: PCP Internal Medicine Adolescent Medicine; Visit Provider Internal Medicine
DX: E11.69 Type 2 diabetes mellitus with other specified complication (principal); E66.9 Obesity, unspecified; I11.0 Hypertensive heart disease with heart failure; I25.118 Atherosclerotic heart disease of native coronary artery with other forms of angina pectoris; I25.5 Ischemic cardiomyopathy; I48.91 Unspecified atrial fibrillation; I50.9 Heart failure, unspecified; R06.00 Dyspnea, unspecified; Z95.810 Presence of automatic (implantable) cardiac defibrillator
CPT/HCPCS: 36415; 80048; 85025; 93458; 99152; C1725; C1760; C1769; J1644; Q9967

== ENCOUNTER 2024-05-15 00:51 | Emergency (ER) | payer MEDICARE, SELFPAY ==
--- NOTE | 2024-05-15 00:59 | ECG_ITS ---
APPROVED REPORT Exam: Resting ECG HR:86 bpm ECG Measurements Heart Rate 86 AXES QRSd 148 QRS -5 QT 373 T 11 QTc 417 Conclusion ATRIAL FIBRILLATION INTRAVENTRICULAR CONDUCTION DELAY [130+ ms QRS DURATION] ABNORMAL ECG UNCONFIRMED REPORT Electronically signed by : MANOLO NOBLE, 05/15/2024 03:46:41
[2024-05-15 01:01] VITALS: BP 138/71; PULSE 95; RESP 18; TEMP 36.8; O2SAT 98; BMI 33.5
--- NOTE | 2024-05-15 01:12 | ED_ITS ---
Discharge Plan Disposition Patient Disposition: Left Against Medical Advice Condition: Undetermined Prescriptions Prescriptions: No Action Xarelto 20 mg tablet 20 mg PO DAILY Qty: 90 3RF Rx Instructions: must administer with evening meal Trulicity 3 mg/0.5 mL pen injector SQ Patient Comments: INJECT THREE (3) MG EVERY WEEK BY SUBCUTANEOUS ROUTE. Entresto 24-26 mg tablet 1 tab PO BID Qty: 60 5RF bisoprolol fumarate 10 mg tablet 10 mg PO BID Qty: 180 3RF atorvastatin 80 mg tablet 80 mg PO DAILY Patient Comments: TAKE 1 TABLET 1 TIME EACH DAY isosorbide mononitrate 30 mg tablet extended release 24 hr 15 mg PO DAILY Patient Comments: TAKE 1/2 TABLET 1 TIME EACH DAY FOR HIGH BLOOD PRESSURE clopidogrel 75 mg tablet 75 mg PO DAILY spironolactone 25 mg tablet 50 mg PO DAILY Patient Comments: TAKE 2 TABLETS 1 TIME EACH DAY levothyroxine 75 mcg tablet 75 mcg PO DAILY Patient Comments: TAKE 1 TABLET 1 TIME EACH DAY pantoprazole 40 mg tablet,delayed release (DR/EC) 40 mg PO DAILY metformin 1,000 mg tablet 1,000 mg PO DAILY Patient Comments: TAKE ONE (1) TABLET EVERY DAY BY ORAL ROUTE. finasteride 5 mg tablet 5 mg PO DAILY Patient Comments: TAKE 1 TABLET 1 TIME EACH DAY levocetirizine 5 mg tablet 5 mg PO DAILY Patient Comments: TAKE 1 TABLET 1 TIME EACH DAY IN THE EVENING buprenorphine-naloxone 8-2 mg film 1 film sublingual DAILY Patient Comments: PLACE 1 FILM UNDER THE TONGUE AND ALLOW TO DISSOLVE 1 TIME EACH DAY Jardiance 25 mg tablet 25 mg PO DAILY Referrals Follow up/Referrals: Darius Alvarez MD [Primary Care Provider] - See instructions Activity Restrictions/Add. Instructions Additional Instructions/Restrictions: Please call and follow-up with Jem in the morning. Consider return to the ER if you change your mind. Clinical Impressions Clinical Impression: Defibrillator discharge Print Language Print Language: Greenlandic Discharge ED Provider: Fracisco Melchor Adult HPI General Chief complaint: Dizziness Stated complaint: dizziness, defib shock Time Seen by Provider: 05/15/24 01:09 Mode of Arrival: Ambulatory Source of Information: Patient Limitations: No Limitations Description of Symptoms (Recalled from ER Triage Doc. by RN): Patient states he was feeling dizzy a couple of hours ago, and his defibulator shocked him. States he is back to feeling normal now. He is unsure who the data librarian is, but states he still has a year left on the battery. History of Present Illness HPI narrative: 68-year-old male with history of coronary artery disease, heart failure with ischemic cardiomyopathy, AICD in place, rate controlled A-fib on Xarelto presents after a presumed AICD firing. He reports he was lying in bed and began feeling dizzy for approximately 5 to 6 seconds when he felt his AICD fired. He reports he felt a little weak afterwards but then felt back to normal. He reports that he feels totally fine now, felt fine before the incident and has no other complaints. 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 clopidogrel 75 mg tablet 75 mg PO DAILY Antiplatelet 03/01/23 03/14/24 empagliflozin 25 mg tablet 25 mg PO DAILY Diabetes 03/01/23 03/14/24 (Jardiance) finasteride 5 mg tablet 5 mg PO DAILY High Blood Pressure 03/01/23 03/14/24 isosorbide mononitrate 30 mg 15 mg PO DAILY High Blood Pressure 03/01/23 0 03/14/24 tablet,extended release 24 hr levocetirizine 5 mg tablet 5 mg PO DAILY Allergy Symptoms 03/01/23 03/14/24 levothyroxine 75 mcg tablet 75 mcg PO DAILY Thyroid 03/01/23 03/14/24 metformin 1,000 mg tablet 1,000 mg PO DAILY Diabetes 03/01/23 03/14/24 pantoprazole 40 mg tablet,delayed 40 mg PO DAILY Acid Reflux 03/01/23 03/14/24 release spironolactone 25 mg tablet 50 mg PO DAILY Fluid 03/01/23 03/14/24 dulaglutide 3 mg/0.5 mL mg SQ 08/31/23 03/14/24 subcutaneous pen injector (Trulicity) Previous Rx's ?Medication ?Instructions ?Recorded rivaroxaban 20 mg tablet (Xarelto) 20 mg PO DAILY #90 tabs 07/26/23 bisoprolol fumarate 10 mg tablet 10 mg PO BID Heart Rhythm #180 tabs 08/25/23 sacubitril 24 mg-valsartan 26 mg 1 tab PO BID #60 tabs 08/31/23 tablet (Entresto) Allergies Allergy/AdvReac Type Severity Reaction Status Date / Time famotidine [From Pepcid] Allergy Hives Verified 03/14/24 13:26 [facility] Disclaimer: The information contained in this section may have been updated after the patien maciel was seen, as this information can be updated by other users. Social History Smoking Status: Never smoker alcohol intake: never substance use type: denies use current occupational status: retired Travel in the last 8 weeks: Inside the [place] household members: spouse housing: house current occupational exposures/hazards: No caffeine: No ROS Obtained: Yes All systems reviewed & no additional complaints except as documented Physical Exam General General appearance: alert and in no apparent distress Head Head exam: atraumatic and normocephalic Eye Eye exam: Present normal appearance, PERRL and EOMI ENT ENT exam: Present normal oropharynx and normal external ear exam Neck Neck exam: Present normal inspection and full ROM Chest Chest inspection: Present normal inspection and symmetric chest wall rise; Absent tenderness Respiratory Respiratory exam: Present normal lung sounds bilaterally; Absent respiratory distress Cardiovascular Cardiovascular exam: Present regular rate and normal rhythm Abdominal Exam Abdominal exam: Present soft; Absent distention, tenderness or guarding Extremities Exam Extremities exam: Present normal inspection; Absent edema or joint swelling Back Exam Back exam: Present normal inspection; Absent tenderness Neurological Exam Neurological exam: Present alert and oriented X3; Absent motor sensory deficit Psychiatric Psychiatric exam: Present normal affect and normal mood Skin Skin exam: Present warm, dry and normal color Lymphatic Lymphatic Findings: no adenopathy Medical Decision Making Medical Records Medical records reviewed: Yes I reviewed the patient's medical records. Napoleon Inquiry Pt receiving controlled substance: No Napoleon was queried for this patient: No Vital Signs: 05/15/24 01:01 05/15/24 01:33 Temperature 98.3 F 98.7 F Temperature Source Oral Oral Pulse Rate 97 H Pulse Rate [Right Radial] 95 H Respiratory Rate 18 18 Blood Pressure 130/63 Blood Pressure [Right Arm] 138/71 Blood Pressure Mean [Right Arm] 93 Blood Pressure Source Automatic Cuff Blood Pressure Source [Right Arm] Automatic Cuff Blood Pressure Position Sitting Blood Pressure Position [Right Arm] Supine 02 Sat by Pulse Oximetry 98 Oxygen Delivery Method Room Air Room Air Lab Data Lab results reviewed: Yes I reviewed the patient's lab results. Medical Decision Narrative: 68-year-old male with history of coronary artery disease, heart failure with ischemic cardiomyopathy, AICD in place, rate controlled A-fib on Xarelto presents after a presumed AICD firing. History was obtained via interactive discussion with patient, family, chart. On arrival, patient is [afebrile, hemodynamically stable, satting appropriately, alert, oriented x4, GCS 15], moving all extremities spontaneously. Full physical exam performed and significant for no significant physical exam abnormalities Differential includes but is not limited to arrhythmia, ACS, AICD malfunction, electrolyte derangement. I had extensive discussion with patient regarding his presentation. I recommended that patient stay in the ER for evaluation including AICD interrogation, labs, EKG etc. Patient reports that they said I should not worry about it if it just fires once and I feel fine. I again recommended that he stay for evaluation but patient ultimately declined and decided to leave [place]. He reports that he will follow-up with Jem's office in the morning and he will return if he feels another AICD discharge. Procedures Risk/Benefits of Procedure(s) Were Explained: Yes Critical Care Critical Care Time Critical Care Time: No
[2024-05-15 01:33] VITALS: BP 130/63; PULSE 97; RESP 18; TEMP 37.1; O2SAT 96
== END 2024-05-15 01:35 | disposition left against medical advice (07) ==
PROVIDERS: Emergency Provider Emergency Medicine; PCP Internal Medicine Adolescent Medicine
DX: R42 Dizziness and giddiness (principal); I48.0 Paroxysmal atrial fibrillation; Z45.02 Encounter for adjustment and management of automatic implantable cardiac defibrillator; Z86.79 Personal history of other diseases of the circulatory system; Z79.01 Long term (current) use of anticoagulants
CPT/HCPCS: 93005; 99283

== ENCOUNTER 2024-05-17 15:00 | Outpatient (CLI) | payer MEDICARE, SELFPAY ==
--- NOTE | 2024-05-17 15:05 | CA_ITS ---
APPROVED REPORT EXAM: Comprehensive 2D, Doppler, and color-flow Echocardiogram Geoscience Specialist: SURYA Graham, RVS Ht: 5 ft 11 in Wt: 234lbs BSA: 2.25 BP: 119/75 mmHg Indications: AICD Recent discharge secondary to Vtach, CADm CM, Afib, MR, TR 2D Dimensions IVSd 1.05 cm LVEF (Visual) 26.30 % PWd 1.57 cm LA Volume 104.30 mL LVDd 5.82 cm LA Volume Index 45.20 mL/m2 (M/F) 16-34 LVDs 5.10 cm Left Atrium 4.23 cm M-Mode Dimensions RVDd 2.67 cm (0.9-2.6) LA Diam 5.20 cm (1.9-4.0) LVDd 6.49 cm (3.5-5.7) LVDs 5.21 cm (3.5-5.7) IVSd 0.74 cm (0.6-1.1) PWd 1.11 cm (0.6-1.1) EF (Teich) 33.20% EPSs 1.70 cm FS 16.10% EDV (Teich) 194.70 mL TAPSE 1.75 (<1.7) ESV (Teich) 130.10 mL LV Diastology E Decel Time 143 (160-240 msec) E/A Ratio 3.26 MED A' 3.30 cm/s LAT A' 3.20 cm/s Aortic Valve CORNELIA Index 1.24 cm2/m2 AoV Peak Hakan. 105.0 (50-130 cm/s) AO Peak GR. 4.40 mmHg AO Mean GR. 2.20 (<5 mmHg) AO VTI 22.2 (18-25 cm) CORNELIA (VTI) 2.87 (2.5-4.5 cm2) Mitral Valve MV A Velocity 31.0 (40-130 cm/s) E/A Ratio 3.26 MV Mean Gr. 1.40 (<2mmHg) Tricuspid Valve TR P. Velocity 249.00 cm/s RAP Estimate 10.00 mmHg RVSP 34.80 mmHg Left Ventricle The left ventricle is normal size. Left ventricular systolic function is mild to moderately decreased. There is increased LV wall thickness. There is mild to moderate global hypokinesis present. LVEF is 40%. Diastolic function is indeterminate. Right Ventricle The right ventricle is normal size. The right ventricular systolic function is normal. Atria Left atrium is moderately dilated. Right atrium is mildly dilated. There is no Doppler evidence of interatrial shunt. Aortic Valve The aortic valve opens well. There is no aortic valvular stenosis. No aortic regurgitation is present. Mitral Valve The mitral valve is mildly thickened. No evidence of mitral valve stenosis. Mild to moderate mitral regurgitation. Tricuspid Valve The tricuspid valve leaflets are thin and pliable. Mild tricuspid regurgitation. RVSP is 20-25 mmHg. Pulmonic Valve The pulmonary valve is normal in structure. Mild pulmonic regurgitation. Great Vessels The aortic root is normal in size. The ascending aorta is not well-visualized. IVC is normal in size and collapses >50% with inspiration. Pericardium There is no pericardial effusion. Other Information Study Quality: Fair Conclusion Mild to moderate reduction in LV systolic function (LVEF 40%). Biatrial dilation. Mild to moderate MR. Mild TR. Electronically signed by : Eleanor Vallecillo MD 05/21/2024 01:11:23
== END 2024-05-17 23:59 | disposition home or self-care (01) ==
LOC: RT 15:01
PROVIDERS: PCP Internal Medicine Adolescent Medicine; Visit Provider Physician Assistant
DX: I51.7 Cardiomegaly (principal); I34.0 Nonrheumatic mitral (valve) insufficiency; R06.09 Other forms of dyspnea; R07.9 Chest pain, unspecified
CPT/HCPCS: 93306

== ENCOUNTER 2024-07-17 11:39 | Outpatient (CLI) | payer MEDICARE, SELFPAY ==
--- NOTE | 2024-07-17 11:43 | XR_ITS ---
FINAL REPORT CLINICAL HISTORY: amiodarone therapy FINDINGS: 2 views of the chest were obtained . The pacemaker is in place. The heart is normal in size. The mediastinum is within normal limits. The lungs are clear. There is no pneumothorax. Osseous structures are unremarkable. IMPRESSION: No acute cardiopulmonary process. Reviewed, Interpreted and Dictated by Ranjit Mckeno MD Transcribed by Radha Sepulveda Authenticated and . [facility]
[2024-07-17 12:33] LABS: Basophils # 0.1 K/mm3 (0-0.2); Basophils % 0.7 % (0.1-2.0); Eosinophils # 0.2 K/mm3 (0.0-0.4); Eosinophils % 2.2 % (0.1-12.0); Hematocrit 39.8 % (42.0-52.0); Hemoglobin 12.9 g/dL (14.1-18.0); Lymphocytes # 1.3 K/mm3 (0.7-4.5); Lymphocytes % 15.5 % (10-50); Mean Corpuscular HGB Conc 32.3 g/dL (31.8-35.4); Mean Corpuscular Hemoglobin 33.7 pg (27.0-31.2); Mean Corpuscular Volume 104.1 fl (80-94); Mean Platelet Volume 8.6 fl (7.4-10.4); Monocytes # 0.5 K/mm3 (0.1-1.0); Monocytes % 5.8 % (1.7-9.3); Neutrophils # 6.3 K/mm3 (1.8-7.8); Neutrophils % 75.8 % (37.0-80.0); Platelet Count 277 K/mm3 (142-424); Red Blood Count 3.82 M/mm3 (4.60-6.20); Red Cell Distribution Width 15.3 % (11.5-17.5); White Blood Count 8.3 K/mm3 (4.8-10.8)
[2024-07-17 12:59] LABS: Albumin Level 3.5 g/dl (3.5-5.0); Chloride 106 mmol/L (98-107); Potassium 4.1 mmoL/L (3.5-5.1); Sodium 139 mmol/L (136-145)
[2024-07-17 13:01] LABS: Anion Gap 13.1 mEq/L (5-15); Bilirubin,Unconjugated 0.4 mg/dL (0.0-1.1); Blood Urea Nitrogen 14 mg/dl (9-20); Carbon Dioxide 24 mmol/L (22.0-30.0); Estimated Glomerular Filt Rate 66 ml/min (>60); GFR (African American) 80 ML/MIN (>60)
[2024-07-17 13:02] LABS: Alanine Aminotransferase 34 U/L (12-78); Alkaline Phosphatase 58 U/L (38-126); Aspartate Amino Transferase 33 U/L (17-59); Bilirubin,Direct 0.1 mg/dl (0.0-0.4); Bilirubin,Indirect 0.4 mg/dL (0.0-0.9); Bilirubin,Total 0.5 mg/dl (0.2-1.3); Calcium 8.8 mg/dl (8.4-10.2); Chol/HDL Ratio 2.8 (1-3.5); Cholesterol 116 mg/dl (140-200); Glucose 255 mg/dl (74-100); HDL Cholesterol 41 mg/dl (40-60); Total Protein,Serum 5.8 g/dl (6.3-8.2); Triglycerides 97 mg/dl (30-150); VLDL Cholesterol 19 mg/dL (0-40)
[2024-07-17 13:13] LABS: Direct LDL Cholesterol 61.99 mg/dL (100-129)
[2024-07-17 13:17] LABS: Free T4 (Free Thyroxine) 1.76 ng/dl (0.78-2.19)
== END 2024-07-17 23:59 | disposition home or self-care (01) ==
LOC: RAD 11:40
PROVIDERS: PCP Internal Medicine Adolescent Medicine; Visit Provider Physician Assistant
DX: R06.09 Other forms of dyspnea (principal); R07.9 Chest pain, unspecified; R55 Syncope and collapse; E03.9 Hypothyroidism, unspecified; R42 Dizziness and giddiness; E78.2 Mixed hyperlipidemia; E11.69 Type 2 diabetes mellitus with other specified complication; E66.9 Obesity, unspecified; Z95.810 Presence of automatic (implantable) cardiac defibrillator; I25.5 Ischemic cardiomyopathy; I50.42 Chronic combined systolic (congestive) and diastolic (congestive) heart failure; E78.5 Hyperlipidemia, unspecified; I25.118 Atherosclerotic heart disease of native coronary artery with other forms of angina pectoris
CPT/HCPCS: 36415; 71046; 80048; 80061; 80076; 84439; 84443; 85025

== ENCOUNTER 2024-09-01 12:25 | Outpatient (CLI) | payer MEDICARE, SELFPAY ==
[2024-09-01 14:07] LABS: Alanine Aminotransferase 24 U/L (12-78); Albumin/Globulin Ratio 1.7 (1.1-1.8); Alkaline Phosphatase 49 U/L (38-126); Aspartate Amino Transferase 26 U/L (17-59); Bilirubin,Total 0.6 mg/dl (0.2-1.3); Blood Urea Nitrogen 19 mg/dl (9-20); Calcium 9.4 mg/dl (8.4-10.2); Carbon Dioxide 22 mmol/L (22.0-30.0); Chloride 106 mmol/L (98-107); Estimated Glomerular Filt Rate 66 ml/min (>60); GFR (African American) 80 ML/MIN (>60); Globulin 2.3 g/dL (1.3-3.2); Glucose 162 mg/dl (74-100); Sodium 137 mmol/L (136-145); Total Protein,Serum 6.3 g/dl (6.3-8.2)
[2024-09-01 14:13] LABS: Anion Gap 13.7 mEq/L (5-15); Potassium 4.7 mmoL/L (3.5-5.1)
== END 2024-09-01 23:59 | disposition home or self-care (01) ==
LOC: LAB 12:27
PROVIDERS: Visit Provider Anesthesiology
DX: Z01.812 Encounter for preprocedural laboratory examination (principal)
CPT/HCPCS: 36415; 80053

== ENCOUNTER 2024-11-29 13:54 | Outpatient (CLI) | payer MEDICARE, SELFPAY ==
--- NOTE | 2024-11-29 13:59 | CA_ITS ---
APPROVED REPORT EXAM: Comprehensive 2D, Doppler, and color-flow Echocardiogram with contrast Water Plant Pump Operator: Tenisha Walsh CRT Ht: 5 ft 11 in Wt: 235lbs BSA: 2.26 BP: 97/47 mmHg Indications: Congestive Heart Failure, Atrial Fibrillation, Diabetes, Syncope, CAD, Hypertension/HDD, BLADDER CA, stents, AICD, CM EF 40% ECHO 05/21/24 Echo Enhancing Agent Indication: Endocardial border delineation Agent(s) / Amount(s) Used: Definity 2 cc Comments: DEFINITY GIVEN 2D Dimensions LA Volume 62.00 mL LA Volume Index 26.80 mL/m2 (M/F) 16-34 M-Mode Dimensions RVDd 2.51 cm (0.9-2.6) LA Diam 4.45 cm (1.9-4.0) LVDd 6.47 cm (3.5-5.7) LVDs 5.36 cm (3.5-5.7) IVSd 1.20 cm (0.6-1.1) PWd 0.56 cm (0.6-1.1) EF (Teich) 35.00% FS 17.20% EDV (Teich) 213.70 mL TAPSE 2.38 (<1.7) ESV (Teich) 138.90 mL LV Diastology E Decel Time 150 (160-240 msec) E/A Ratio 2.91 MED A' 3.10 cm/s LAT A' 2.40 cm/s Aortic Valve AO Peak GR. 6.00 mmHg Mitral Valve MV E Max Hakan. 104.0 (40-130 cm/s) MV A Velocity 36.0 (40-130 cm/s) E/A Ratio 2.91 MV PHT 44.0 ms Pulmonary Valve PV Peak Velocity 97.0 (50-150 cm/s) Tricuspid Valve TR P. Velocity 228.00 cm/s RAP Estimate 10.00 mmHg RVSP 30.90 mmHg Left Ventricle The left ventricle is normal size. The left ventricular systolic function is moderately to severely reduced. There is increased LV wall thickness. There is moderate to severe global hypokinesis. The septum is asynchronous. Diastolic function is indeterminate No left ventricle thrombus noted on this study. LVEF is 30%. Right Ventricle The right ventricle is normal size. The right ventricular systolic function is normal. There is a device lead in the right ventricle. Atria Left atrium is mildly dilated. Right atrium is mildly dilated. There is no Doppler evidence of interatrial shunt. Aortic Valve The aortic valve is mildly thickened. There is no aortic valvular stenosis. Trace aortic regurgitation. Mitral Valve The mitral valve is normal in structure. No evidence of mitral valve stenosis. Moderate mitral regurgitation. The MR jet is eccentric and posteriorly directed. Tricuspid Valve Tricuspid valve is grossly normal in structure and function. Trace tricuspid regurgitation. RVSP is 20-25 mmHg. Pulmonic Valve The pulmonary valve is normal in structure. Trace pulmonic regurgitation. Great Vessels The aortic root is normal in size. IVC is normal in size and collapses >50% with inspiration. Pericardium There is no pericardial effusion. Other Information Study Quality: Fair Conclusion Moderate to severe reduction in LV systolic function (LVEF 30%). Asynchronous septum. Mild biatrial dilation. Moderate MR. The MR jet is eccentric and posteriorly directed. When directly compared to prior study from 05/17/2024, the LV systolic function is further reduced. Clinical correlation is suggested. Electronically signed by : Eleanor Vallecillo MD 11/30/2024 00:30:27
[2024-11-29] MEDS: DEFINITY US ECHO CONTRAST 2ML INJ 2 MG IV (15:00)
== END 2024-11-29 23:59 | disposition home or self-care (01) ==
LOC: RT 13:57
PROVIDERS: PCP Internal Medicine Adolescent Medicine; Visit Provider Physician Assistant
DX: I25.5 Ischemic cardiomyopathy (principal); I51.7 Cardiomegaly; I34.0 Nonrheumatic mitral (valve) insufficiency; R55 Syncope and collapse
CPT/HCPCS: 93306; Q9957

== ENCOUNTER 2024-12-26 10:04 | Day surgery (SDC) | payer MEDICARE, SELFPAY ==
[2024-12-26] VITALS (7 sets, daily range): BP systolic 119–143; BP diastolic 61–82; PULSE 71–86; RESP 18–20; O2SAT 95–96; BMI 34.8
--- NOTE | 2024-12-26 07:03 | IR_ITS ---
APPROVED REPORT Patient Location: Outpatient Acquisition Analyst: JAIRO Hickey RT (R) PROCEDURES 1. Pocket Revision 2. Removal of old Pacemaker 3. Placement of left ventricular sensing pacing lead via the coronary sinus. 4. Permanent cardiac resynchronization therapy with ICD implantation/biventricular pacemaker. INDICATION Left ventricular ejection fraction of, End of Battery Life, Greater than 20% right ventricular pacing, Informed consent was obtained prior to the procedure. COMPLICATIONS None Estimated Blood Loss: Less than 10 ML TECHNIQUE 1% lidocaine with epinephrine used to anesthetize the right anterior aspect of the chest. Scalpel was used to make the initial cutaneous incision and to dissect down into the fascia. The generator was removed from the existing pocket. Digital manipulation was required along with intermittent usage of scalpel in order to revise the pocket. The leads were removed from the old generator. The patient was then placed in Trendelenburg position and the subclavian vein was accessed 1 time via the Selinger technique. A 9.5 Vietnamese sheath was placed under fluoroscopic guidance into the subclavian vein. The dilator was removed from the sheath. Under fluoroscopic guidance the coronary sinus was cannulated and confirmed with an injection of contrast. An 0.014 wire was then placed distally in the inferior posterior segment of the left ventricle via the coronary sinus and the left ventricular lead was advanced. After achieving excellent thresholds and interrogation numbers the sheath was then peeled away and the lead was then secured into place using silk suture. Ancef was used to flush the pocket and the 3 leads were attached to the AMPOULE WASHING MACHINE OPERATOR-D generator. The generator was then secured into place by heavy silk suture. Monocryl was used to close the subcutaneous layers while donte were used to close the subcutaneous layers while donte were used to close the cutaneous layer. A pressure dressing was placed and the patient was transferred to the postop holding area in stable condition for postoperative care. INTERROGATION Generator Model number: OrangeScape HF [id number] Generator Serial number: [id number] Atrial lead model number: 1882 TC/52 Atrial lead serial number: [id number] P-wave: Atrial Fibrillation Impedance: 350 Ohms Threshold: Right Ventricular lead model number: [id number]/58 Right Ventricular lead serial number: [id number] R-wave: Less than 12 mV Impedance: Threshold: 0.75V @ 0.5ms Left Ventricular lead model number: Gadiel [id number] 86 cm Left Ventricular lead serial number: [id number] R-wave: 1 mV Impedance: Threshold: 1.0V @ 0.5ms Pacing Parameters: Mode: DDDR Base/Max Track:70 ppm / 120 ppm No diaphragmatic stimulation at 10 volts. IMPRESSION 1. Successful Pocket Revision 2. Successful Removal of old Pacemaker 3. Successful Placement of left ventricular sensing pacing lead via the coronary sinus. 4. Successful Permanent cardiac resynchronization therapy with ICD implantation/biventricular pacemaker. PLAN 1. Postop wound care. Electronically signed by : Sterling Parish MD 12/28/2024 14:43:36
[2024-12-26 10:26] LABS: Basophils # 0.1 K/mm3 (0-0.2); Basophils % 0.7 % (0.1-2.0); Eosinophils # 0.2 Kmm3 (0.0-0.4); Eosinophils % 2.5 % (0.1-12.0); Hematocrit 44.7 % (42.0-52.0); Hemoglobin 14.2 g/dL (14.1-18.0); Lymphocytes # 1.8 K/mm3 (0.7-4.5); Lymphocytes % 22.4 % (10-50); Mean Corpuscular HGB Conc 31.8 g/dL (31.8-35.4); Mean Corpuscular Hemoglobin 33.1 pg (27.0-31.2); Mean Corpuscular Volume 104.2 fl (80-94); Mean Platelet Volume 9.8 fl (7.4-10.4); Monocytes # 0.8 K/mm3 (0.1-1.0); Monocytes % 9.4 % (1.7-9.3); Neutrophils # 5.3 K/mm3 (1.8-7.8); Neutrophils % 64.6 % (37.0-80.0); Nucleated Red Blood Cells # 0 10^3/uL; Nucleated Red Blood Cells % 0 %; Platelet Count 203 K/mm3 (142-424); Red Blood Count 4.29 M/mm3 (4.60-6.20); Red Cell Distribution Width 15.5 % (11.5-17.5); Red Cell Distribution Width-SD 59.3 fL; White Blood Count 8.2 K/mm3 (4.8-10.8)
[2024-12-26 10:45] LABS: Anion Gap 10.3 mEq/L (5-15); Blood Urea Nitrogen 19 mg/dl (9-20); Calcium 9.3 mg/dl (8.4-10.2); Carbon Dioxide 27 mmol/L (22.0-30.0); Chloride 107 mmol/L (98-107); Creatinine Clearance Estimated 100 mL/min (50-200); Estimated Glomerular Filt Rate 66 ml/min (>60); GFR (African American) 80 ML/MIN (>60); Glucose 128 mg/dl (74-100); Potassium 4.3 mmoL/L (3.5-5.1); Sodium 140 mmol/L (136-145)
--- NOTE | 2024-12-26 12:33 | EXP.ANES.CKL ---
[facility] Disclaimer: The information contained in this section may have been updated after the patient was seen, as this information can be updated by other users. Social History Smoking Status: Never smoker alcohol intake: never substance use type: denies use current occupational status: retired Travel in the last 8 weeks?: Inside the [place] household members: spouse housing: house current occupational exposures/hazards: No caffeine: No Have you lived/traveled outside US in past 30 days?: No Contact w/someone who lives/traveled outside US past 30 days?: No Exposure to someone with infectious disease in past 14 days?: No Do you have a fever (greater than 100.4 F or 38 C)?: No Have you tested positive for COVID-19?: No Exposed to someone with COVID-19 in past 14 days?: No Do you have a sore throat?: No Do you have a cough?: No Do you have any weakness?: No Do you have any diarrhea?: No Are you experiencing any unusual bleeding?: No Do you have any muscle aches/pain?: No Do you have any abdominal pain?: No Are you experiencing loss of taste or smell?: No [facility] Anesthesia Checklist Patient Identification Patient Identification: Arm Band Structural Data Admitted From: Home Planned Operative Procedure/s: Biventricular Pacemaker Upgrade Consent for Planned Operative Procedure(s) Verified: Yes Verified Documents: Surgical Consent and History and Physical NPO Status Verified Time NPO: 00:00 Additional verifications Anesthesia Reactions: No Hx Blood Transfusions: No Blood Transfusion Reaction: No Airway Assessment Mallampati Score:: Class II C-Spine Mobility Assessed: Yes TMJ Mobility Assessed: Yes Dentition: Edentulous Neurological Assessment Level of Consciousness: Awake, Alert and Appropriate Anesthesia Plan Anesthesia Risk discussed: Yes Anesthesia Plan: Verified ASA Class: IV Anesthesia Type: MAC
[2024-12-26] MEDS: 0.9 % SODIUM CHLORIDE 1000ML 1,000 ML 25 ML IV (14:07)
[2024-12-26] MEDS: CEFAZOLIN 1GM VIAL 1 GM TP (14:07)
[2024-12-26] MEDS: CEFAZOLIN SODIUM 1 GM in 0.9 % SODIUM CHLORIDE 50 ML IV (14:07)
[2024-12-26] MEDS: LIDOCAINE 1% W/EPI 1:100,000 20ML VIAL 20 ML SQ (14:08)
--- NOTE | 2024-12-26 15:39 | XR_ITS ---
FINAL REPORT CLINICAL HISTORY: upgrade pacemaker COMPARISON: 07/17/2024 FINDINGS: SINGLE VIEW CHEST The heart is normal in size. The mediastinum is unremarkable. The lungs are underinflated. New right sided pacemaker generator is identified with overlying skin donte. There is no pneumothorax. IMPRESSION: New right pacemaker generator without evidence of pneumothorax. Reviewed, Interpreted and Dictated by Ranjit Mckeon MD Transcribed by Elizabeth Wynn Authenticated and [facility]
[2024-12-26] MEDS: IOPAMIDOL-370 (76%);100ML BOTTLE 50 ML IV (16:26)
== END 2024-12-26 16:59 | disposition home or self-care (01) ==
PROVIDERS: PCP Internal Medicine Adolescent Medicine; Visit Provider Internal Medicine
DX: Z45.010 Encounter for checking and testing of cardiac pacemaker pulse generator [battery] (principal); I25.5 Ischemic cardiomyopathy; I48.0 Paroxysmal atrial fibrillation; I11.0 Hypertensive heart disease with heart failure; I50.42 Chronic combined systolic (congestive) and diastolic (congestive) heart failure; I25.10 Atherosclerotic heart disease of native coronary artery without angina pectoris; C67.9 Malignant neoplasm of bladder, unspecified; E11.9 Type 2 diabetes mellitus without complications; Z79.01 Long term (current) use of anticoagulants; Z68.34 Body mass index [BMI] 34.0-34.9, adult; Z79.84 Long term (current) use of oral hypoglycemic drugs; Z88.8 Allergy status to other drugs, medicaments and biological substances; E66.9 Obesity, unspecified
CPT/HCPCS: 33225; 33264; 36415; 71045; 80048; 85025; C1769; C1882; C1900; J2704; J7030; Q9967

== ENCOUNTER 2025-01-30 15:12 | Outpatient (CLI) | payer MEDICARE, SELFPAY ==
[2025-01-30 16:01] LABS: Basophils # 0.1 K/mm3 (0-0.2); Basophils % 0.8 % (0.1-2.0); Eosinophils # 0.2 Kmm3 (0.0-0.4); Eosinophils % 2.9 % (0.1-12.0); Hematocrit 43.7 % (42.0-52.0); Immature Granulocytes # 0.03 10^3uL; Immature Granulocytes % 0.5 %; Lymphocytes # 1.2 K/mm3 (0.7-4.5); Lymphocytes % 17.6 % (10-50); Mean Corpuscular Hemoglobin 33.1 pg (27.0-31.2); Mean Corpuscular Volume 103.3 fl (80-94); Mean Platelet Volume 10.1 fl (7.4-10.4); Monocytes # 0.8 K/mm3 (0.1-1.0); Monocytes % 11.9 % (1.7-9.3); Neutrophils # 4.4 K/mm3 (1.8-7.8); Neutrophils % 66.3 % (37.0-80.0); Nucleated Red Blood Cells # 0 10^3/uL; Nucleated Red Blood Cells % 0 %; Platelet Count 160 K/mm3 (142-424); Red Blood Count 4.23 M/mm3 (4.60-6.20); Red Cell Distribution Width 14.5 % (11.5-17.5); Red Cell Distribution Width-SD 54.1 fL; White Blood Count 6.7 K/mm3 (4.8-10.8)
[2025-01-30 17:21] LABS: Alanine Aminotransferase 24 U/L (12-78); Alkaline Phosphatase 50 U/L (38-126); Anion Gap 14.3 mEq/L (5-15); Aspartate Amino Transferase 21 U/L (17-59); Bilirubin,Direct 0.2 mg/dl (0.0-0.4); Bilirubin,Indirect 0.4 mg/dL (0.0-0.9); Bilirubin,Total 0.6 mg/dl (0.2-1.3); Bilirubin,Unconjugated 0.4 mg/dL (0.0-1.1); Blood Urea Nitrogen 24 mg/dl (9-20); Calcium 9.1 mg/dl (8.4-10.2); Carbon Dioxide 23 mmol/L (22.0-30.0); Chloride 108 mmol/L (98-107); Chol/HDL Ratio 2.7 (1-3.5); Cholesterol 117 mg/dl (140-200); Estimated Glomerular Filt Rate 74 ml/min (>60); GFR (African American) 89 ML/MIN (>60); Glucose 165 mg/dl (74-100); HDL Cholesterol 44 mg/dl (40-60); Magnesium 1.8 mg/dl (1.6-2.3); Potassium 4.3 mmoL/L (3.5-5.1); Sodium 141 mmol/L (136-145); Total Protein,Serum 6.4 g/dl (6.3-8.2); Triglycerides 87 mg/dl (30-150); VLDL Cholesterol 17 mg/dL (0-40)
[2025-01-30 17:30] LABS: NT Pro Brain Natriuretic Pep. 1920 pg/mL (0-125)
[2025-01-30 17:31] LABS: Direct LDL Cholesterol 49.97 mg/dL (100-129)
[2025-01-30 18:07] LABS: Free T4 (Free Thyroxine) 1.93 ng/dl (0.78-2.19)
== END 2025-01-30 23:59 | disposition home or self-care (01) ==
LOC: LAB 15:13
PROVIDERS: PCP Internal Medicine Adolescent Medicine; Visit Provider Physician Assistant
DX: I25.5 Ischemic cardiomyopathy (principal); E66.9 Obesity, unspecified; I20.89 Other forms of angina pectoris; E11.69 Type 2 diabetes mellitus with other specified complication; I11.0 Hypertensive heart disease with heart failure; I50.42 Chronic combined systolic (congestive) and diastolic (congestive) heart failure; Z79.01 Long term (current) use of anticoagulants
CPT/HCPCS: 36415; 80048; 80061; 80076; 83735; 83880; 84439; 84443; 85025

== ENCOUNTER 2025-05-23 13:58 | Outpatient (CLI) | payer MEDICARE, SELFPAY ==
[2025-05-23 14:48] LABS: Hematocrit 42.3 % (42.0-52.0); Hemoglobin 13.4 g/dL (14.1-18.0); Immature Granulocytes % 0.5 %; Mean Corpuscular HGB Conc 31.7 g/dL (31.8-35.4); Mean Corpuscular Hemoglobin 33.5 pg (27.0-31.2); Mean Corpuscular Volume 105.8 fl (80-94); Nucleated Red Blood Cells % 0 %; Platelet Count 207 K/mm3 (142-424); Red Blood Count 4.00 M/mm3 (4.60-6.20); Red Cell Distribution Width-SD 60.5 fL; White Blood Count 5.8 K/mm3 (4.8-10.8)
[2025-05-23 15:20] LABS: Alanine Aminotransferase 21 U/L (12-78); Albumin Level 4.2 g/dl (3.5-5.0); Alkaline Phosphatase 50 U/L (38-126); Anion Gap 12.6 mEq/L (5-15); Aspartate Amino Transferase 25 U/L (17-59); Bilirubin,Direct 0.3 mg/dl (0.0-0.4); Bilirubin,Indirect 1.0 mg/dL (0.0-0.9); Bilirubin,Total 1.3 mg/dl (0.2-1.3); Bilirubin,Unconjugated 1.0 mg/dL (0.0-1.1); Blood Urea Nitrogen 18 mg/dl (9-20); Calcium 9.7 mg/dl (8.4-10.2); Carbon Dioxide 25 mmol/L (22.0-30.0); Chloride 103 mmol/L (98-107); Cholesterol 91 mg/dl (140-200); Creatinine,Serum 1.10 mg/dl (0.66-1.25); Estimated Glomerular Filt Rate 66 ml/min (>60); GFR (African American) 80 ML/MIN (>60); Glucose 119 mg/dl (74-100); HDL Cholesterol 35 mg/dl (40-60); Magnesium 1.9 mg/dl (1.6-2.3); Potassium 4.6 mmoL/L (3.5-5.1); Sodium 136 mmol/L (136-145); Total Protein,Serum 6.9 g/dl (6.3-8.2); Triglycerides 65 mg/dl (30-150)
[2025-05-23 15:32] LABS: Free T4 (Free Thyroxine) 2.22 ng/dl (0.78-2.19)
[2025-05-23 15:50] LABS: Thyroid Stimulating Hormone 1.94 uIU/mL (0.465-4.68)
== END 2025-05-23 23:59 | disposition home or self-care (01) ==
LOC: LAB 13:58
PROVIDERS: PCP Internal Medicine Adolescent Medicine; Visit Provider Internal Medicine
DX: I25.10 Atherosclerotic heart disease of native coronary artery without angina pectoris (principal); I11.9 Hypertensive heart disease without heart failure; I48.91 Unspecified atrial fibrillation
CPT/HCPCS: 36415; 80048; 80061; 80076; 83735; 84439; 84443; 85025

== ENCOUNTER 2025-05-26 17:41 | Emergency (ER) | payer MEDICARE, SELFPAY ==
--- NOTE | 2025-05-26 17:44 | ECG_ITS ---
APPROVED REPORT Exam: Resting ECG HR:87 bpm ECG Measurements Heart Rate 87 AXES QRSd 102 QRS -15 QT 405 T 160 QTc 449 Conclusion ATRIAL FIBRILLATION WITH ABERRANT CONDUCTION OR VENTRICULAR PREMATURE COMPLEXES PROBABLE INFERIOR MYOCARDIAL INFARCTION , PROBABLY OLD [35 ms Q WAVE IN II/aVF] MODERATE T-WAVE ABNORMALITY, CONSIDER LATERAL ISCHEMIA [-0.1+ mV T-WAVE IN I/aVL/V5/V6] ABNORMAL ECG UNCONFIRMED REPORT Electronically signed by : MANOLO NOBLE, 05/28/2025 23:06:12
--- NOTE | 2025-05-26 17:53 | ED_ITS ---
<Statement entered by Naomy Perla DO - 05/27/25 00:48> I was consulted by the HEMAL, and we discussed the complexity of problems being addressed. I approve the treatment and management plan for this patient's care in the emergency department, thus performing a substantial portion of the medical decision making. Naomy Perla DO Discharge Plan Disposition Patient Disposition: Home, Self-Care Prescriptions Prescriptions: No Action levothyroxine 100 mcg tablet 100 mcg PO DAILY Patient Comments: TAKE 1 TABLET 1 TIME EACH DAY Trulicity 4.5 mg/0.5 mL pen injector 4.5 mg SQ WEEKLY Patient Comments: INJECT CONTENTS OF 1 SYRINGE 1 TIME EACH WEEK ofloxacin 0.3 % drops 1 drp Eye-Both BID Patient Comments: PLACE 1 DROP IN BOTH EYES 2 TIMES EACH DAY FOR 5 DAYS amiodarone 200 mg tablet 200 mg PO Q24H 30 Days Qty: 30 5RF atorvastatin 80 mg tablet 80 mg PO DAILY Qty: 90 3RF bisoprolol fumarate 10 mg tablet 10 mg PO BID Qty: 180 3RF isosorbide mononitrate 30 mg tablet extended release 24 hr 15 mg PO DAILY 90 Days Qty: 45 3RF Xarelto 20 mg tablet See Rx Instructions .ROUTE .COMPLEX Qty: 90 3RF Dose Instruction: TAKE 1 TABLET 1 TIME EACH DAY WITH THE EVENING MEAL Rx Instructions: TAKE 1 TABLET 1 TIME EACH DAY WITH THE EVENING MEAL Entresto 49-51 mg tablet 1 tab PO BID 90 Days Qty: 180 3RF spironolactone 25 mg tablet 50 mg PO DAILY 90 Days Qty: 180 3RF furosemide [Lasix] 40 mg tablet 40 mg PO DAILY Qty: 3 0RF pantoprazole 40 mg tablet,delayed release (DR/EC) 40 mg PO DAILY metformin 1,000 mg tablet 1,000 mg PO DAILY Patient Comments: TAKE ONE (1) TABLET EVERY DAY BY ORAL ROUTE. finasteride 5 mg tablet 5 mg PO DAILY Patient Comments: TAKE 1 TABLET 1 TIME EACH DAY levocetirizine 5 mg tablet 5 mg PO DAILY Patient Comments: TAKE 1 TABLET 1 TIME EACH DAY IN THE EVENING buprenorphine-naloxone 8-2 mg film 1 film sublingual DAILY Patient Comments: PLACE 1 FILM UNDER THE TONGUE AND ALLOW TO DISSOLVE 1 TIME EACH DAY Jardiance 25 mg tablet 25 mg PO DAILY Referrals Follow up/Referrals: Provider,Referral, MD [Primary Care Provider, Medical] - See instructions Activity Restrictions/Add. Instructions Additional Instructions/Restrictions: Today you were evaluated in the emergency department. You had 2 cardiac enzymes that are negative. Please follow-up with your marriage and family teacher as soon as possible. Please follow-up with your PCP. Return to the ED for any worsening of your condition. Clinical Impressions Clinical Impression: Atypical chest pain Instructions Patient Instructions: DI for Atypical Chest Pain Print Language Print Language: Ecuadorean Discharge ED Provider: Naomy Perla HPI General Chief Complaint: Chest Pain Stated Complaint: Chest Pain Time Seen by Provider: 05/26/25 17:53 History of Present Illness HPI narrative: patient is a 69-year-old male PMHx HFrEF, history of V. tach chest pain, anxiety, HLD, diabetes, CAD, AICD, cardiomyopathy, who presents to the ED for complaints of chest pain that 2 hours prior to arrival. Patient states he had 1 episode of vomiting with his chest pain. He states that since he arrived in the ED he has not had chest pain. He states that while he had chest pain, it felt like a throbbing in the center of his chest, did not radiate through to his back, neck, arms. 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 Instructions: Resume on 12/28/24. pantoprazole 40 mg tablet,delayed 40 mg PO DAILY Acid Reflux 03/01/23 05/23/25 release dulaglutide 4.5 mg/0.5 mL 4.5 mg SQ WEEKLY 05/16/24 subcutaneous pen injector (Trulicity) levothyroxine 100 mcg tablet 100 mcg PO DAILY 05/16/24 05/23/25 ofloxacin 0.3 % eye drops 1 drp Eye-Both BID 05/30/24 05/23/25 Previous Rx's ?Medication ?Instructions ?Recorded amiodarone 200 mg tablet 200 mg PO Q24H 30 days #30 t abs 01/03/25 atorvastatin 80 mg tablet 80 mg PO DAILY Cholesterol # 90 tabs 01/03/25 bisoprolol fumarate 10 mg tablet 10 mg PO BID Heart Rh ythm #180 tabs 01/03/25 isosorbide mononitrate 30 mg 15 mg (1/2 x 30 mg) PO DA LAURA High 01/03/25 tablet,extended release 24 hr Blood Pressure 90 days # 45 tabs rivaroxaban 20 mg tablet (Xarelto) See Rx Instructions .Route 01/03/25 .COMPLEX #90 tabs sacubitril 49 mg-valsartan 51 mg 1 tab PO BID 90 days #180 tabs 01/03/25 tablet (Entresto) spironolactone 25 mg tablet 50 mg (2 x 25 mg) PO DAILY Fluid 01/03/25 90 days #180 tabs furosemide 40 mg tablet (Lasix) 40 mg PO DAILY #3 tabs 02/02/25 Allergies Allergy/AdvReac Type Severity Reaction Status Date / Time famotidine (From Pepcid) Allergy Hives Verified 05/23/25 13:25 [facility] Disclaimer: The information contained in this section may have been updated after the patient was seen, as this information can be updated by other users. Medical History (Updated 05/26/25 @ 21:02 by Nina Dubon APRN) HFrEF (heart failure with reduced ejection fraction) Daytime somnolence Poor sleep Social History Smoking Status: Current every day smoker tobacco type: cigarettes and smokeless tobacco alcohol intake: never substance use type: denies use current occupational status: retired Travel in the last 8 weeks?: Inside the [place] household members: spouse housing: house current occupational exposures/hazards: No caffeine: No Have you lived/traveled outside [place] in past 30 days?: No Contact w/someone who lives/traveled outside [place] past 30 days?: No Exposure to someone with infectious disease in past 14 days?: No Do you have a fever (greater than 100.4 F or 38 C)?: No Have you tested positive for COVID-19?: No Exposed to someone with COVID-19 in past 14 days?: No Do you have a sore throat?: No Do you have a cough?: No Do you have any weakness?: No Do you have any diarrhea?: No Are you experiencing any unusual bleeding?: No Do you have any muscle aches/pain?: No Do you have any abdominal pain?: No Are you experiencing loss of taste or smell?: No Other Medical History Have you received the Flu Vaccine for this season: No Have you received the Pneumonia Vaccine: Yes ROS Obtained: Yes Systems reviewed as appropriate & no additional complaints except as documented Physical Exam General General appearance: alert Head Head exam: atraumatic Eye Eye exam: Present PERRL Neck Neck exam: Present full ROM Respiratory Respiratory exam: Present normal lung sounds bilaterally Cardiovascular Cardiovascular exam: Present regular rate Abdominal Exam Abdominal exam: Present soft; Absent tenderness Back Exam Back exam: Present full ROM Neurological Exam Neurological exam: Present alert and oriented X3 Skin Skin exam: Present warm HEART Score HEART Score HEART Score assessment performed?: Yes History (anamnesis): Moderately suspicious ECG: Normal Age: >65 years Risk factors: 3 or more risk factors Troponin: </= normal limit HEART Score: 5 Critical Care Critical Care Time Critical Care Time: No Medical Decision Making [place] Inquiry Pt receiving controlled substance: No Vital Signs Vital Signs: 05/26/25 17:54 05/26/25 18:00 05/26/25 18:30 Temperature 98.4 F Temperature Source Oral Pulse Rate 86 73 Pulse Rate [Right Radial] 80 Respiratory Rate 15 16 16 Blood Pressure 123/60 123/64 Blood Pressure [Right Arm] 129/76 Blood Pressure Mean [Right Arm] 93 Blood Pressure Source [Right Arm] Automatic Cuff Blood Pressure Position [Right Arm] Supine 02 Sat by Pulse Oximetry 95 Oxygen Delivery Method Room Air Oxygen Flow Rate (LPM) 05/26/25 18:43 05/26/25 19:20 Temperature Temperature Source Pulse Rate 79 80 Pulse Rate [Right Radial] Respiratory Rate 12 17 Blood Pressure 122/69 120/67 Blood Pressure [Right Arm] Blood Pressure Mean [Right Arm] Blood Pressure Source [Right Arm] Blood Pressure Position [Right Arm] 02 Sat by Pulse Oximetry 91 L 94 L Oxygen Delivery Method Nasal Cannula Nasal Cannula Oxygen Flow Rate (LPM) 2 2 Lab Data Labs: Lab Results 05/26/25 17:49: WBC 7.4, RBC 4.10 L, Hgb 13.8 L, Hct 43.6, MCV 106.3 H, MCH 33.7 H, MCHC 31.7 L, RDW 15.1, Plt Count 218, MPV 10.4, Neut % (Auto) 73.6, Lymph % (Auto) 13.5, [place] % (Auto) 10.7 H, Eos % (Auto) 1.5, Baso % (Auto) 0.4, Neut # (Auto) 5.4, Lymph # (Auto) 1.0, [place] # (Auto) 0.8, Eos # (Auto) 0.1, Baso # (Auto) 0.0, Sodium 138, Potassium 4.4, Chloride 105, Carbon Dioxide 25, Anion Gap 12.4, BUN 15, Creatinine 1.10, Estimated Creat Clear 100, Estimated GFR 66, Est GFR ( Amer) 80, Glucose 159 H, Calcium 9.2, Total Bilirubin 1.2, AST 26, ALT 22, Alkaline Phosphatase 50, Troponin I < 0.01, NT-Pro-B Natriuret Pep 1680 H, Total Protein 7.0, Albumin 4.2, Globulin 2.8, Albumin/Globulin Ratio 1.5, HCV Ab CLAIRE w/Rflx PCR Qn Negative, HIV Ag/Ab Combo Qual Negative 05/26/25 20:30: Troponin I < 0.01 05/26/25 17:49 05/26/25 17:49 Response Orders (Tests/Meds): ORDERS Category Date Time Status CXR --portable [XR chest portable] Stat Exams 05/26/25 18:01 Taken BNP [NT Pro Brain Natriuretic Pep.] Stat Lab 05/26/25 17:49 Completed CBC w/Auto Diff [Complete Blood Count Auto Diff] Stat Lab 05/26/25 17:49 Completed CMP [Comprehensive Metabolic Panel] Stat Lab 05/26/25 17:49 Completed HIV Combo Stat Lab 05/26/25 17:49 Completed Hepatitis C Ab Qual. W/ RFX Stat Lab 05/26/25 17:49 Completed Trop I [Troponin I] Stat Lab 05/26/25 17:49 Completed Troponin I Q3H Lab 05/26/25 20:30 Completed Troponin I Q3H Lab 09/28/25 00:15 Ordered MDM Narrative Medical Decision Narrative: In summary, patient is a 69-year-old male PMHx HFrEF, history of V. tach chest pain, anxiety, HLD, diabetes, CAD, AICD, cardiomyopathy, who presents to the ED for complaints of chest pain that 2 hours prior to arrival. Patient states he had 1 episode of vomiting with his chest pain. He states that since he arrived in the ED he has not had chest pain. He states that while he had chest pain, it felt like a throbbing in the center of his chest, did not radiate through to his back, neck, arms. He denies his defibrillator firing. He states he has had a defibrillator in place for approximately 10 years. Denies any history of blood clots. Is on a blood thinner. Has not had any recent falls. Upon initial evaluation patient is alert, oriented and hemodynamically stable. His physical exam is remarkable for obesity, no chest wall tenderness, abdomen is soft and nontender. Differential diagnosis include ACS, PE, pneumonia, pneumothorax, infectious process, electrolyte abnormality, cardiac arrhythmia, GERD, among others. Hematologic labs reviewed. CBC unremarkable for any leukocytosis, stable H&H. CMP unremarkable for any actionable abnormalities. First troponin < 0.01. BNP 1680 (appears to be baseline). Second troponin < 0.01. Upon reassessment, patient has remained chest pain free and nausea free while in the ED. We discussed that he will need to follow back up with cardiology as soon as possible, he states he will call to make an appointment. We discussed return precautions to the ED. Upon discharge, patient is alert, oriented and cooperative. He is hemodynamically stable. He is ambulatory from the ED without difficulty.
[2025-05-26 17:54] VITALS: BP 129/76; PULSE 80; RESP 15; TEMP 36.9; O2SAT 95; BMI 34.8
[2025-05-26 18:00] VITALS: BP 123/60; PULSE 86; RESP 16
--- NOTE | 2025-05-26 18:01 | XR_ITS ---
PROCEDURE INFORMATION: Exam: XR Chest Exam date and time: 05/26/2025 7:14 PM Age: 69 years old Clinical indication: Pain; Shortness of breath; Chest pressure; Additional info: Cp SOA TECHNIQUE: Imaging protocol: Radiologic exam of the chest. Views: 1 view. COMPARISON: CR XR CHEST PORTABLE 12/26/2024 3:46 PM FINDINGS: Tubes, catheters and devices: Stable pacemaker placement. Lungs: Unremarkable. No consolidation. Pleural spaces: Unremarkable. No pleural effusion. No pneumothorax. Heart/Mediastinum: Unremarkable. No cardiomegaly. Bones/joints: Unremarkable. IMPRESSION: No acute findings.
[2025-05-26 18:18] LABS: Hematocrit 43.6 % (42.0-52.0); Hemoglobin 13.8 g/dL (14.1-18.0); Immature Granulocytes % 0.3 %; Mean Corpuscular HGB Conc 31.7 g/dL (31.8-35.4); Mean Corpuscular Hemoglobin 33.7 pg (27.0-31.2); Mean Corpuscular Volume 106.3 fl (80-94); Nucleated Red Blood Cells % 0 %; Platelet Count 218 K/mm3 (142-424); Red Blood Count 4.10 M/mm3 (4.60-6.20); Red Cell Distribution Width-SD 59.5 fL; White Blood Count 7.4 K/mm3 (4.8-10.8)
[2025-05-26 18:21] LABS: Alanine Aminotransferase 22 U/L (12-78); Albumin Level 4.2 g/dl (3.5-5.0); Albumin/Globulin Ratio 1.5 (1.1-1.8); Alkaline Phosphatase 50 U/L (38-126); Anion Gap 12.4 mEq/L (5-15); Aspartate Amino Transferase 26 U/L (17-59); Bilirubin,Total 1.2 mg/dl (0.2-1.3); Blood Urea Nitrogen 15 mg/dl (9-20); Calcium 9.2 mg/dl (8.4-10.2); Carbon Dioxide 25 mmol/L (22.0-30.0); Chloride 105 mmol/L (98-107); Creatinine Clearance Estimated 100 mL/min (50-200); Creatinine,Serum 1.10 mg/dl (0.66-1.25); Estimated Glomerular Filt Rate 66 ml/min (>60); GFR (African American) 80 ML/MIN (>60); Globulin 2.8 g/dL (1.3-3.2); Glucose 159 mg/dl (74-100); Potassium 4.4 mmoL/L (3.5-5.1); Sodium 138 mmol/L (136-145); Total Protein,Serum 7.0 g/dl (6.3-8.2)
[2025-05-26 18:30] VITALS: BP 123/64; PULSE 73; RESP 16
[2025-05-26 18:30] LABS: NT Pro Brain Natriuretic Pep. 1680 pg/mL (0-125)
[2025-05-26 18:35] LABS: Troponin I < 0.01 ng/ml (0.00-0.034)
[2025-05-26 18:43] VITALS: BP 122/69; PULSE 79; RESP 12; O2SAT 91
[2025-05-26 19:20] VITALS: BP 120/67; PULSE 80; RESP 17; O2SAT 94
[2025-05-26 19:23] LABS: Hepatitis C Ab Qual. W/ RFX NEGATIVE (Negative)
[2025-05-26 21:01] LABS: Troponin I < 0.01 ng/ml (0.00-0.034)
[2025-05-26 21:13] VITALS: BP 132/79; PULSE 77; RESP 16; TEMP 37; O2SAT 96
== END 2025-05-26 21:15 | disposition home or self-care (01) ==
PROVIDERS: Nurse Practitioner; Emergency Provider Student in an Organized Health Care Education/Training Program
DX: R07.89 Other chest pain (principal); R11.2 Nausea with vomiting, unspecified; F17.210 Nicotine dependence, cigarettes, uncomplicated; I11.0 Hypertensive heart disease with heart failure; I50.20 Unspecified systolic (congestive) heart failure; E78.5 Hyperlipidemia, unspecified; Z86.79 Personal history of other diseases of the circulatory system; Z95.810 Presence of automatic (implantable) cardiac defibrillator; Z79.01 Long term (current) use of anticoagulants
CPT/HCPCS: 71045; 80053; 83880; 84484; 85025; 86803; 87389; 93005; 99285

== ENCOUNTER 2025-06-07 12:39 | Outpatient (CLI) | payer MEDICARE, SELFPAY ==
--- NOTE | 2025-06-07 | CA_ITS ---
APPROVED REPORT Exam: Pharmacologic Technologist: Yanet Burt Ht: 5 ft 11 in Wt: 250 lbs BSA: 2.32 m2 HR: 78 bpm BP: 136/89 mmHg Medical History Cardiac Risk Factors: Smoking Stress Test Details HR Resting HR: 78 bpm Max Heart Rate (APMHR): [phone] bpm Target HR (85% APMHR): 127.895191 bpm Recovery HR: 87 bpm BP Resting BP: 136.0/89.0 mmHg Recovery BP: 131.0/62.0 mmHg ECG Stress ECG Conclusion During lexiscan pt experinced no symptoms. PVCs noted. Less than .5mm upsloping ST segment changes. Nondiagnostic ECG/lexiscan. Electronically signed by : Eleanor Vallecillo MD 06/11/2025 02:01:47
--- NOTE | 2025-06-07 13:00 | NM_ITS ---
APPROVED REPORT Exam: Nuclear Stress Test Indication: cad, h/o mi, diabetes, hyperlipidemia, tob use, c.p., sob Patient Location: Outpatient Stress Tech: Yanet Burt NM Tech:JAIRO Stokes RT(R)(N) Ht: 5 ft 11 in Wt: 250 lbs HR: 78 bpm BP: 136/89 mmHg BSA: 2.32 m2 TID: 1.11 BMI: 34.8 History: cad, h/o mi, diabetes, hyperlipidemia, tob use, c.p., sob Procedure: Patient received 0.4 mg of intravenous Lexiscan, resting heart rate 78 bpm, resting blood pressure 136/89 mmHg, with Lexiscan maximum heart rate achieved was 93 bpm which is % of the maximum predicted heart rate and blood pressure was 117/75 mmHg. With Lexiscan, patient denied any complaint of chest pain. Cardiac Stress and Resting SPECT Images: Cardiac Stress and Resting SPECT images were obtained using technetium 99m Myoview 30.9 mCi stress and 9.63 mCi at rest. Resting and stress imaging in supine and prone positions demonstrate a large sized, severe, predominantly fixed perfusion defect in the inferior, inferoseptal, and inferolateral LV mi from the base and extending distally towards the inferior apical region. There is a small region of reversibility towards the apical LV wall. Gated imaging demonstrates dilated LV with severe reduction in global LV systolic function. LVEF is calculated at 20%. Correlation with new or recent TTE is suggested. Conclusion: Large sized, severe, predominantly fixed perfusion defect in the inferior, inferoseptal, and inferolateral LV mi from the base and extending distally towards the inferior apical region. There is a small region of reversibility towards the apical LV wall. Findings are suggestive of partial reversible ischemia. Gated imaging demonstrates dilated LV with severe reduction in global LV systolic function. LVEF is calculated at 20%. Correlation with new or recent TTE is suggested. Electronically signed by : Eleanor Vallecillo MD 06/11/2025 01:59:38
[2025-06-07] MEDS: SODIUM CHLORIDE 0.9% 10ML SYR (RAD ONLY) 10 ML IV ×2 (13:05→14:05)
[2025-06-07 13:57] VITALS: BP 136/89; PULSE 78; RESP 14
[2025-06-07] MEDS: ISOTOPE MYOVIEW (PER STUDY) 1 DOSE IV (15:14)
== END 2025-06-07 23:59 | disposition home or self-care (01) ==
LOC: RAD 12:39
PROVIDERS: PCP Internal Medicine Adolescent Medicine; Visit Provider Nurse Practitioner Family
DX: I49.3 Ventricular premature depolarization (principal); I25.10 Atherosclerotic heart disease of native coronary artery without angina pectoris; E11.9 Type 2 diabetes mellitus without complications; E78.5 Hyperlipidemia, unspecified; Z72.0 Tobacco use; R94.39 Abnormal result of other cardiovascular function study; R94.31 Abnormal electrocardiogram [ECG] [EKG]
CPT/HCPCS: 78452; 93017; 93018; A9502; J2785